=== PATIENT | female | born 1945 | race Caucasian/White ===

== ENCOUNTER 2018-10-14 10:23 | Emergency (ER) | payer OTHER, BC ==
--- OUTSIDE RECORDS SUMMARY | 2018-10-14 10:44 | XMS REPORT | Clinical Summary ---
:1945 Author Organization [facility] Address [address] [place] [address] Care Team Providers Name Role Phone Aelc Primary Care Provider Allergies Active Allergy Reactions Severity Noted Date Comments Codeine 01/23/2017 Medications Medication Sig Dispensed Refills Start Date End Date Status losartan-hydroCHLOROth Take 1 tablet by 0 Active iazide (HYZAAR) 100-25 mouth daily. mg per tablet PANTOPRAZOLE SODIUM Take 40 mg by 0 Active (PANTOPRAZOLE ORAL) mouth daily. pravastatin Take 80 mg by 0 Active (PRAVACHOL) 80 MG mouth daily. tablet GABAPENTIN ORAL Take 600 mg by 0 Active mouth daily. Missing or Take 1 mg by mouth 0 Active Non-Formulary daily Rpenirole Medication HCL- for Restless Leg Syndrome . meclizine (ANTIVERT) Take 12.5 mg by 0 Active 12.5 mg tablet mouth 3 (three) times daily as needed. loratadine (CLARITIN) Take 10 mg by 0 Active 10 mg tablet mouth daily. Active Problems Not on file Social History Tobacco Use Types Packs/Day Years Used Date Former Smoker Alcohol Use Drinks/Week oz/Week Comments Yes 5 Glasses of wine 3.0 Sex Assigned at Date Recorded Not on file Job Start Date Occupation Industry Not on file Not on file Not on file Travel History Travel Start Travel End No recent travel history available. Last Filed Vital Signs Not on file Plan of Treatment Not on file Results Not on fileafter 10/13/2017 Insurance Payer Benefit Plan / Subscriber ID Type Phone Address Group MEDICARE MEDICARE A B xxxxxxxxxx Medicare BLUE CROSS/BLUE BCBS INDEMNITY [place] xxxxxxxxxxxx [facility] [phone] [address] [place] [address]
--- OUTSIDE RECORDS SUMMARY | 2018-10-14 10:44 | XMS REPORT ---
:1945 Author Organization [facility] Address [address] [place] [address] Care Team Providers Name Role Phone ASAEL ROSE CLAUDIO Unavailable Unavailable JOSE M CLINTON Unavailable Unavailable Payers Payer Name Policy Type Policy Number Effective Date Expiration Date Problems This patient has no known problems. Allergies, Adverse Reactions, Alerts Allergy Allergy Status Severity Reaction(s) Onset Inactive Treating Comments Name Type Date Date Clinician codeine DA Active [place] 2018-07 00:00:0 0 adhesive DA Active WI 2018-07 tape 00:00:0 0 adhesive DA Active WI 2018-07 00:00:0 0 codeine DA Active MO 2018-04 00:00:0 0 codeine DA Active MO 2018-03 00:00:0 0 FOAM TAPE DA Active U 2018-02 00:00:0 0 codeine DA Active MO 2018-02 00:00:0 0 Medications This patient has no known medications. Results Test Description Test Time Test Comments Text Results Atomic Results Result Comments - XR PELVIS 1/2 VIEWS 2018-07-29 10:31:00 Patient Name: MAMI BURNETT Unit No: [id number] EXAMS: CPT CODE: [id number] XR PELVIS 1/2 VIEWS 60758 INTRAOPERATIVE LEG LENGTH FILM COMMENT: COMPARISON: No prior exams available. In progress left hip replacement is noted. AP PORTABLE LEFT HIP COMMENT: The patient is status post joint replacement which is articulating normally. at 1031 Reported and signed by: Som Ren MD CC: Wilfrid Davalos MD Technologist: GUERO OWEN RT(R) Transcribed D/ (1031) [facility] NAME: MAMI BURNETT [address] [place] [address] PHYS: Wilfrid Locke : 1945 AGE: 72 SEX: F [place] [address] LOC: Y.311 A PHONE #: [phone] EXAM DATE: 07/28/2018 STATUS: ADM IN FAX #: [phone] RAD #: D/C DT PAGE 1 Signed Report Patient Name: MAMI BURNETT Unit No: [id number] EXAMS: CPT CODE: [id number] XR PELVIS 1/2 VIEWS 75189 <Continued> Orig Print D/T: S: 07/29/2018 (1034[facility] NAME: MAMI BURNETT [address] [place] [address] PHYS: PÉREZ.Christine - Wilfrid Davalos : 1945 AGE: 72 SEX: F [place], [place] [address] LOC: Y.311 A PHONE #: [phone] EXAM DATE: 07/28/2018 STATUS: ADM IN FAX #: [phone] RAD #: D/C DT PAGE 2 Signed Report - XR PELVIS 1/2 VIEWS 2018-07-29 10:31:00 Patient Name: MAMI BURNETT Unit No: [id number] EXAMS: CPT CODE: [id number] XR PELVIS 1/2 VIEWS 33651 INTRAOPERATIVE LEG LENGTH FILM COMMENT: COMPARISON: No prior exams available. In progress left hip replacement is noted. AP PORTABLE LEFT HIP COMMENT: The patient is status post joint replacement which is articulating normally. at 1031 Reported and signed by: Som Ren MD CC: Wilfrid Davalos MD Technologist: KAILA PALMA (RT.R) Transcribed D/ (1031) [facility] NAME: MAMI BURNETT [address] [facility] PHYS: NOHELIA - Bobbi Davalosos Narinder : 1945 AGE: 72 SEX: F [place], [place] [address] LOC: Y.311 A PHONE #: [phone] EXAM DATE: 07/28/2018 STATUS: ADM IN FAX #: [phone] RAD #: D/C DT PAGE 1 Signed Report Patient Name: MAMI BURNETT Unit No: [id number] EXAMS: CPT CODE: [id number] XR PELVIS 1/2 VIEWS 08211 <Continued> Orig Print D/T: S: 07/29/2018 (1034) [facility] NAME: MAMI BURNETT [address] [facility] PHYS: Wilfrid Locke : 1945 AGE: 72 SEX: F [place], [place] [address] LOC: Y.311 A PHONE #: [phone] EXAM DATE: 07/28/2018 STATUS: ADM IN FAX #: [phone] RAD #: D/C DT PAGE 2 Signed Report HGB HCT 2018-07-29 06:03:00 Test Item Value Reference Range Comments HEMOGLOBIN (test code=HGB) 10.2 g/dL 12-16 HEMATOCRIT (test code=HCT) 31.4 % 37-47 TISSUE [id number] 15:30:00Surgical Pathology Report Case: [id number] Authorizing Provider: Asael Rose MD Collected: 01/23/2017 1428 Ordering Location: [facility] Received: 01/23/2017 1530 Pathologist: Ciarra Epstein MD Specimens: A) - Breast, Left, LEFT 4-5 OCLOCK BREAST B) - Breast, Right, RIGHT 9-10 O CLOCK BREAST DUCT A. BREAST, LEFT, 4-5 O'CLOCK, 7 CM FROM NIPPLE, ULTRASOUND GUIDED CORE BIOPSY: - FAT NECROSIS - DENSE STROMAL FIBROSIS- LYMPHOPLASMACYTIC INFILTRATEB. BREAST, RIGHT, 9-10 O'CLOCK, ULTRASOUND GUIDED CORE BIOPSY: - DUCTAL CARCINOMA IN SITU ( DCIS) - NUCLEAR GRADE: 3/3 BY SBR CRITERIA - GROWTH PATTERN: SOLID - CENTRAL NECROSIS SEEN - BIOMARKERS PERFORMED ON SECTION # [id number] - ESTROGEN RECEPTOR: NEGATIVE - PROPORTION SCORE: 0/5 - INTENSITY SCORE : 0/3 - SUMMARY: 0% POSITIVE, NO SIGNAL - PROGESTERONE RECEPTOR: NEGATIVE - PROPORTION SCORE: 0/5 - INTENSITY SCORE: 0/3 - SUMMARY: 0% POSITIVE, NO SIGNAL Part A: Specimen left breast: With alicia-cytokeratin immunostain, no occult epithelial cells are seen. With CD31 immunostain, small vessels and plasma cells are seen throughout the specimen. Factor VIII highlights the smaller caliber vessels. Plasmacells are stained with both [place] and Lambda immunostains. In the sections examined, no malignancy is identified.Part B: Specimen right breast: No invasive carcinoma is seen.A. 97864, 57133, 78924 [id number], 97684 [id number] with invasive carcinoma, questionable angiosarcoma, questionable DCISA. Left 4-5 o'clock breast mass 7 cm from nippleB. Right 9-10 o'clock breast DCISSpecimen is received in two containers of formalin both labeled with the patient's information.Specimen A: Labeled "left 4-5 o'clock breast mass 7 cm from nipple" consists of two schultz-yellow breast core biopsies measuring 1.6 x 1.8 cm in length.Ink code: Black.The specimen is entirely submitted entirely in A1.Specimen A: Labeled "right 9-10 o'clock breast DCIS" consists of multiple yellow-white breast core biopsies ranging in length from 1 to 1.5 cm.Ink code: Blue.The specimen is entirely submitted entirely in B1 and B2. CG/ew A. - B. Performed.The following special studies were performed on this case and the interpretationis incorporated in the diagnostic report above:A:ALICIA-CYTOKERATIN ( AE1/AE3)[id number]:ERPRCAP REGULATION: FIXATION TIME FOR BIOMARKERS ASSESSMENTCollection date and time: 01/23/2017 1428Placed in fixative date and time: 01/23/2017 1428Removed from formalin date and time: 0400Methodology: Fixation type and length: tissue was fixed in 10% neutral buffered formalin for a minimal of at least 6 hours and not longer than 72 hours. Antibody and Assay Methodology: Antibodies for ER, PgR, Her2 and Ki67 were assessed using clones SP1, [id number], 4B5 (FDA Approved [employer]) and [id number] respectively from [employer] [place], [place].Control Slides Examined: In- house known ER, VA, HER2 andKi67 positive controls were evaluated along with test tissue. These control slides run along side of the patients sample show appropriate staining.Interpretive Criteria: The staining results according to the ASCO/CAP guidelines for HER2 (Sage SHAW et al. Arch Pathol Lab Med 2012Apr 12 and ER/VA (Ann NICOLAS et al. Arch Pathol Lab Med 2010; 134:e48-e72) by ASCO/ CAP guidelines, ER and VA "positive" requires greater or equal to 1% tumor cells showing nuclear staining. HER 2 fausto "positive" (3+) requires circumferential membrane staining that is complete and intense within more than 10% of the invasive tumor cells. The ER/VA Proportion Score indicates the proportion of positive staining tumor cells (0=none; 1 < 1/100; 2=1/100-1/10 ; 3=1/10-1/3; 4=1/3-2/3; 5> 2/3). The intensity score indicates the average intensity of positive staining tumor cells (0=none; 1=weak; 2=intermediate; 3= strong).For the purpose of defining "positive", the proportion and intensity scores were added to obtain a total score (range 0-8). ER and PgR "positive" ( total score >2) were defined in studies correlating IHC total scores with clinical outcome in patients receiving hormonal therapy (see: Modern Pathol 11: 155, 1998; J Clin Oncol 17:1474, 1999; Int J Cancer 89:111, 2000; Breast Cancer Res Treat 76:S36[abst#30], 2002). The immunohistochemistry test was developed and its performance characteristics determined by [facility] Pathology [facility]. It has not been cleared or approvedby the U.S. Food and Drug Administration. The FDA has determined that such clearance or approval is not necessary. The test is used for clinical purposes. It should not be regarded as investigational or for research. This laboratory is certified under the Clinical Laboratory Improvement Amendments of 1988 (CLIA-88 ) as qualified to perform high complexity clinical laboratory testing.POCT- [id number] 08:13:00 Test Item Value Reference Range Comments POC-CREATININE ([facility]) 0.6 mg/dL 0.6-1.3 TESTED AT [facility] [address] (test qftj=9243) [facility] [address] POC-EGFR ([facility]) (test 99 mL/min/1.73M2 zbzp=1363)
--- NOTE | 2018-10-14 12:18 | RAD REPORT ---
EXAM DESCRIPTION: RAD - Chest Pa And Lat (2 Views) - 10/14/2018 12:04 pm CLINICAL HISTORY: Fever, sore throat, cough and congestion COMPARISON: January 2017 TECHNIQUE: PA and lateral views of the chest were obtained. FINDINGS: The lungs are normal volume. No peripheral consolidation mass. Interstitial markings are p rominent but not substantially different from comparison. This is favored to be underlying fibrotic c hange. Heart size is normal and central vasculature is within normal limits. No pleural effusion or pneu mothorax seen. No acute bony finding noted. No aortic abnormality. IMPRESSION: No focal pneumonia seen and no failure or volume overload. Chronic interstitial lung disease is present not substantially different from comparison.
--- NOTE | 2018-10-14 13:06 | EDPHYS ---
Physician Documentation [facility] Name: Gi Sparks Age: 73 yrs Sex: Female : 1945 Arrival Date: 10/14/2018 Time: 10:27 Bed 8 Private MD: Jonatan Rangel ED Physician Lester Walton HPI: 10/14 12:00 This 73 yrs old Female presents to ER via Ambulatory with complaints of Fever.pm1 23:20 The patient or guardian reports cough, with no sputum. Onset: The symptoms/episode pm1 began/occurred 3 day(s) ago. Severity of symptoms: in the emergency department the symptoms are unchanged. Modifying factors: The symptoms are alleviated by OTC cold preparation, Tylenol, the symptoms are aggravated by nothing. Associated signs and symptoms: Pertinent positives: diarrhea, fever, rhinorrhea, sore throat, body aches. The patient has not experienced similar symptoms in the past. The patient has not recently seen a physician. Historical: - Allergies: 10:38 Codeine; doesnt like the way it makes her feel; tw2 - Home Meds: 10:38 ropinirole 1 mg Oral tab [Active]; pravastatin 80 mg Oral tab [Active]; pantoprazole 40 tw2 mg Oral TbEC [Active]; losartan 25 mg Oral tab [Active]; gabapentin 600 mg Oral tab [Active]; amlodipine 5 mg tab 1 tab once daily [Active]; loratadine 10 mg oral tab 1 tab once daily [Active]; - PMHx: 10:38 GERD; Hyperlipidemia; Hypertension; neuropathy; restless leg; tw2 - PSHx: 10:38 Hysterectomy; Tonsillectomy; breast cancer; tw2 - Immunization history:: Adult Immunizations. - Social history:: Smoking status: . - Ebola Screening: : Patient denies exposure to infectious person. ROS: 23:20 Eyes: Negative for injury, pain, redness, and discharge, ENT: Negative for injury, pm1 pain, and discharge, Neck: Negative for injury, pain, and swelling, Cardiovascular: Negative for chest pain, palpitations, and edema. 23:20 Abdomen/GI: Negative for abdominal pain, nausea, vomiting, diarrhea, and constipation, Back: Negative for injury and pain, : Negative for injury, bleeding, discharge, and swelling, MS/Extremity: Negative for injury and deformity, Skin: Negative for injury, rash, and discoloration, Neuro: Negative for headache, weakness, numbness, tingling, and seizure. 23:20 Constitutional: Positive for body aches, fever, Negative for poor PO intake. 23:20 Respiratory: Positive for cough, with no reported sputum, shortness of breath. Exam: 23:20 Constitutional: This is a well developed, well nourished patient who is awake, alert, pm1 and in no acute distress. Head/Face: Normocephalic, atraumatic. Eyes: Pupils equal round and reactive to light, extra-ocular motions intact. Lids and lashes normal. Conjunctiva and sclera are non-icteric and not injected. Cornea within normal limits. Periorbital areas with no swelling, redness, or edema. ENT: Nares patent. No nasal discharge, no septal abnormalities noted. Tympanic membranes are normal and external auditory canals are clear. Oropharynx with no redness, swelling, or masses, exudates, or evidence of obstruction, uvula midline. Mucous membranes moist. Neck: Trachea midline, no thyromegaly or masses palpated, and no cervical lymphadenopathy. Supple, full range of motion without nuchal rigidity, or vertebral point tenderness. No Meningismus. Chest/axilla: Normal chest wall appearance and motion. Nontender with no deformity. No lesions are appreciated. Cardiovascular: Regular rate and rhythm with a normal S1 and S2. No gallops, murmurs, or rubs. Normal PMI, no JVD. No pulse deficits. Respiratory: Lungs have equal breath sounds bilaterally, clear to auscultation and percussion. No rales, rhonchi or wheezes noted. No increased work of breathing, no retractions or nasal flaring. Abdomen/GI: Soft, non-tender, with normal bowel sounds. No distension or tympany. No guarding or rebound. No evidence of tenderness throughout. Back: No spinal tenderness. No costovertebral tenderness. Full range of motion. Skin: Warm, dry with normal turgor. Normal color with no rashes, no lesions, and no evidence of cellulitis. MS/ Extremity: Pulses equal, no cyanosis. Neurovascular intact. Full, normal range of motion. 23:20 Neuro: Orientation: is normal, Motor: moves all fours, Gait: is steady, at a normal pace, without difficulty. Vital Signs: 10:35 BP 173 / 88; Pulse 85; Resp 18; Temp 99.0(O); Pulse Ox 95% on R/A; Weight 104.33 kg tw2 (R); Pain 7/10; 11:52 BP 136 / 60; Pulse 83; Resp 14; Pulse Ox 94% ; bp 13:50 BP 115 / 40; Pulse 77; Resp 16; Pulse Ox 97% ; bp MDM: 11:04 Patient medically screened. pm1 13:05 Data reviewed: vital signs. Data interpreted: Pulse oximetry: on room air is 95 %. pm1 Interpretation: normal. Counseling: I had a detailed discussion with the patient and/or guardian regarding: the historical points, exam findings, and any diagnostic results supporting the discharge/admit diagnosis, lab results, radiology results, the need for outpatient follow up, to return to the emergency department if symptoms worsen or persist or if there are any questions or concerns that arise at home. 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 Patient did get the flu shot this year. Patient's symptoms greater than 48 hours, therefore not a candidate for tamiflu. 10/14 10:58 Order name: Flu; Complete Time: 12:20 pm1 10/14 10:58 Order name: Strep; Complete Time: 12:20 pm1 10/14 10:58 Order name: Chest Pa And Lat (2 Views) XRAY; Complete Time: 12:20 pm1 10/14 12:03 Order name: Throat Culture EDMS Administered Medications: No medications were administered Disposition: 16:28 Co-signature as Attending Physician, Lester Walton MD I agree with the assessment and kdr plan of care. Disposition: 10/14/18 13:06 Discharged to Home. Impression: Influenza due to identified novel influenza A virus. - Condition is Stable. - Discharge Instructions: Influenza, Adult. - Medication Reconciliation Form, Thank You Letter, Antibiotic Education, Prescription Opioid Use form. - Follow up: Emergency Department; When: As needed; Reason: Worsening of condition. Follow up: Private Physician; When: 2 - 3 days; Reason: Recheck today's complaints, Continuance of care, Re-evaluation by your physician. - Problem is new. - Symptoms have improved. Signatures: Dispatcher [employer] EDMS Lester Walton MD MD kdr Marinas, Patrick, YARITZA [employer]IV[employer] WORK[employer]ISTED LIVING pm1 Aster Mensah, RN RN tw2 Marcell Tirado, RN RN bp Corrections: (The following items were deleted from the chart) 13:51 13:06 10/14/2018 13:06 Discharged to Home. Impression: Influenza due to identified bp novel influenza A virus. Condition is Stable. Forms are Medication Reconciliation Form, Thank You Letter, Antibiotic Education, Prescription Opioid Use. Follow up: Emergency Department; When: As needed; Reason: Worsening of condition. Follow up: Private Physician; When: 2 - 3 days; Reason: Recheck today's complaints, Continuance of care, Re-evaluation by your physician. Problem is new. Symptoms have improved. pm1
--- NOTE | 2018-10-14 13:06 | ER ---
Nurse's Notes [facility] Name: Gi Sparks Age: 73 yrs Sex: Female : 1945 Arrival Date: 10/14/2018 Time: 10:27 Bed 8 Private MD: oJnatan Rangel Diagnosis: Influenza due to identified novel influenza A virus Presentation: 10/14 10:34 Presenting complaint: Patient states: i just started running fever Friday it has been tw2 102. i feel like a little sore throat, i feel congested, my teeth hurt and i have diarrhea, i feel short of breath. Transition of care: patient was not received from another setting of care. Onset of symptoms was October 14, 2018. Risk Assessment: Do you want to hurt yourself or someone else? Patient reports no desire to harm self or others. Initial Sepsis Screen: Does the patient meet any 2 criteria? No. Patient's initial sepsis screen is negative. Does the patient have a suspected source of infection? No. Patient's initial sepsis screen is negative. Care prior to arrival: None. 10:34 Method Of Arrival: Ambulatory tw2 10:34 Acuity: GUEVARA 3 tw2 Triage Assessment: 10:36 General: Appears uncomfortable, obese, Behavior is calm, cooperative, appropriate for tw2 age. Pain: Complains of pain in throat. Neuro: Reports headache. Respiratory: Reports shortness of breath. Historical: - Allergies: 10:38 Codeine; doesnt like the way it makes her feel; tw2 - Home Meds: 10:38 ropinirole 1 mg Oral tab [Active]; pravastatin 80 mg Oral tab [Active]; pantoprazole 40 tw2 mg Oral TbEC [Active]; losartan 25 mg Oral tab [Active]; gabapentin 600 mg Oral tab [Active]; amlodipine 5 mg tab 1 tab once daily [Active]; loratadine 10 mg oral tab 1 tab once daily [Active]; - PMHx: 10:38 GERD; Hyperlipidemia; Hypertension; neuropathy; restless leg; tw2 - PSHx: 10:38 Hysterectomy; Tonsillectomy; breast cancer; tw2 - Immunization history:: Adult Immunizations. - Social history:: Smoking status: . - Ebola Screening: : Patient denies exposure to infectious person. Screenin:45 Abuse screen: Denies threats or abuse. Denies injuries from another. Nutritional bp screening: No deficits noted. Tuberculosis screening: No symptoms or risk factors identified. Fall Risk None identified. Assessment: 10:45 General: Appears in no apparent distress. uncomfortable, obese, Behavior is bp cooperative, appropriate for age, anxious. Pain: Denies pain. Neuro: Level of Consciousness is awake, alert, obeys commands, Oriented to person, place, time, situation, Appropriate for age. Cardiovascular: No deficits noted. Respiratory: Airway is patent Respiratory effort is even, unlabored, Respiratory pattern is regular, symmetrical. GI: No signs and/or symptoms were reported involving the gastrointestinal system. : No signs and/or symptoms were reported regarding the genitourinary system. EENT: No deficits noted. Derm: No deficits noted. Musculoskeletal: Circulation, motion, and sensation intact. Range of motion: intact in all extremities. 11:45 Reassessment: ALL CURRENT ORDERS COMPLETED, RESULTS PENDING. bp 13:51 Reassessment: PT D/C HOME AMBULATORY, DX WITH INFLUENZA. bp Vital Signs: 10:35 BP 173 / 88; Pulse 85; Resp 18; Temp 99.0(O); Pulse Ox 95% on R/A; Weight 104.33 kg tw2 (R); Pain 7/10; 11:52 BP 136 / 60; Pulse 83; Resp 14; Pulse Ox 94% ; bp 13:50 BP 115 / 40; Pulse 77; Resp 16; Pulse Ox 97% ; bp ED Course: 10:27 Patient arrived in ED. mr 10:28 Jonatan Rangel MD is Private Physician. mr 10:35 Triage completed. tw2 10:36 Arm band placed on. tw2 10:44 Farhad Paez NP is PHCP. pm1 10:44 Lester Walton MD is Attending Physician. pm1 10:45 Patient has correct armband on for positive identification. Bed in low position. Call bp light in reach. Side rails up X2. 10:48 Marcell Tirado, GONZALEZ is Primary Nurse. bp 12:01 Patient moved to radiology via wheelchair. ls3 12:03 Patient moved back from radiology. ml 12:03 Chest Pa And Lat (2 Views) XRAY In Process Unspecified. EDMS 13:30 No provider procedures requiring assistance completed. Patient did not have IV access bp during this emergency room visit. Administered Medications: No medications were administered Outcome: 13:06 Discharge ordered by . pm1 13:30 Discharged to home ambulatory. bp 13:30 Condition: stable 13:30 Discharge instructions given to patient, Instructed on discharge instructions, follow up and referral plans. 13:51 Patient left the ED. bp Signatures: Dispatcher [employer] EDMS LouisEstelita mr Alberto, AdinaFarhad Brownlee, YARITZA SENIOR QUALITY ASSURANCE ENGINEER pm1 Aster Mensah RN RN tw2 Marcell Tirado, GONZALEZ RN bp Michael Cesar ls3
== END 2018-10-14 13:51 | disposition home or self-care (01) ==
LOC: ER 10:23
DX: J10.1 Influenza due to other identified influenza virus with other respiratory manifestations (principal); K21.9 Gastro-esophageal reflux disease without esophagitis; E78.5 Hyperlipidemia, unspecified; I10 Essential (primary) hypertension; Z88.5 Allergy status to narcotic agent
CPT/HCPCS: 71046; 87070; 87081; 87804; 99283

== ENCOUNTER 2019-07-06 06:35 | Day surgery (SDC) | payer OTHER, BC ==
[2019-07-05 14:17] LABS: Absolute Lymphocytes (CBC) 1.3 K/uL (0.7-4.9); Hematocrit 37.6 % (36.0-45.0); Lymphocytes % 24.5 % (15.3-44.8); MPV 11.1 fL (7.6-11.3); RBC Red Blood Cell Count 4.11 M/uL (3.86-4.86)
--- NOTE | 2019-07-05 14:23 | RAD REPORT ---
EXAM DESCRIPTION: RAD - Chest Pa And Lat (2 Views) - 07/05/2019 2:08 pm CLINICAL HISTORY: preop, pending cardiac catheterization, history of tachycardia and shortness of br eath COMPARISON: October 14 TECHNIQUE: PA and lateral views of the chest were obtained. FINDINGS: The lungs are clear of mass or infiltrate. Interstitial pattern matches comparison. Hilar regions match comparison as well. Heart size is normal and central vasculature is within normal ely its. No pleural effusion or pneumothorax seen. No acute bone findings. Degenerative change and acce ntuated kyphosis are stable. No aortic abnormality. IMPRESSION: No acute cardiopulmonary process. No significant change from comparison.
[2019-07-05 14:25] LABS: Potassium 4.5 mmol/L (3.5-5.1)
[2019-07-05 14:26] LABS: Protime INR 0.95
--- NOTE | 2019-07-05 15:35 | EKG ---
Test Date: 2019-07-05 Test Time: 13:45:41 Spool Fixer: NEREYDA MEASUREMENT RESULTS: Intervals: Rate: 48 PA: 204 QRSD: 94 QT: 482 QTc: 430 Colon: P: 52 PA: 204 QRS: -25 T: 16 INTERPRETIVE STATEMENTS: Marked sinus bradycardia Septal infarct, age undetermined Abnormal ECG Compared to ECG 01/25/2017 10:37:08 Sinus rhythm no longer present Left-axis deviation no longer present Myocardial infarct finding still present Electronically Signed On 07-05-19 15:34:24 TRAFFIC SIGNAL SUPERVISOR MAINTENANCE by Donavan Joy
--- OUTSIDE RECORDS SUMMARY | 2019-07-06 06:37 | XMS REPORT ---
:1945 [facility] Address [address] [place] [address] Care Team Providers Name Role Phone ASAEL ROSE CLAUDIO Unavailable Unavailable JOSE M CLINTON Unavailable Unavailable Payers Payer Name Policy Type Policy Number Effective Date Expiration Date Problems This patient has no known problems. Allergies, Adverse Reactions, Alerts Allergy Allergy Status Severity Reaction(s) Onset Inactive Treating Comments Name Type Date Date Clinician codeine DA Active [place] 2018-07 00:00:0 0 adhesive DA Active [place] 2018-07 tape 00:00:0 0 adhesive DA Active [place] 2018-07 00:00:0 0 codeine DA Active [place] [...] 10:31:00 Patient Name: MAMI BURNETT Unit No: [id number] EXAMS: CPT CODE: [id number] XR PELVIS 1/2 VIEWS 55230 INTRAOPERATIVE LEG LENGTH FILM COMMENT: COMPARISON: No prior exams available. In progress left hip replacement is noted. AP PORTABLE LEFT HIP COMMENT: The patient is status post joint replacement which is articulating normally. at 1031 Reported and signed by: Som Ren MD CC: Wilfrid Davalos MD Technologist: GUERO OWEN RT(R) Transcribed D/ (1031) Bess [facility] NAME: MAMI BURNETT [address] [place] [address] PHYS: Wilfrid Locke : 1945 AGE: 72 SEX: F [place] [address] LOC: Y.311 A PHONE #: [phone] EXAM DATE: 07/28/2018 STATUS: ADM IN FAX #: [phone] RAD #: D/C DT PAGE 1 Signed Report Patient Name: MAMI BURNETT Unit No: [id number] EXAMS: CPT CODE: [id number] XR PELVIS 1/2 VIEWS 56133 <Continued> Orig Print D/T: S: 07/29/2018 (1034) [facility] NAME: MAMI BURNETT [address] [place] [address] PHYS: PÉREZ.Christine - Wilfrid Davalos : 1945 AGE: 72 SEX: F [place] [address] LOC: Y.311 A PHONE #: [phone] EXAM DATE: 07/28/2018 STATUS: ADM IN FAX #: [phone] RAD #: D/C DT PAGE 2 Signed Report - XR PELVIS 1/2 VIEWS 2018-07-29 10:31:00 Patient Name: MAMI BURNETT Unit No: [id number] EXAMS: CPT CODE: [id number] XR PELVIS 1/2 VIEWS 85946 INTRAOPERATIVE LEG LENGTH FILM COMMENT: COMPARISON: No prior exams available. In progress left hip replacement is noted. AP PORTABLE LEFT HIP COMMENT: The patient is status post joint replacement which is articulating normally. at 1031 Reported and signed by: Som Ren MD CC: Wilfrid Davalos MD Technologist: KAILA PALMA (RT.R) Transcribed D/ (1031Tolu Kellogg [facility] NAME: MAMI BURNETT [address] [facility] PHYS: Bobbi Lockeos Narinder : 1945 AGE: 72 SEX: F [place], [place] [address] LOC: Y.311 A PHONE #: [phone] EXAM DATE: 07/28/2018 STATUS: ADM IN FAX #: [phone] RAD #: D/C DT PAGE 1 Signed Report Patient Name: MAMI BURNETT Unit No: [id number] EXAMS: CPT CODE: [id number] XR PELVIS 1/2 VIEWS 94337 <Continued> Orig Print D/T: S: 07/29/2018 (1034) [facility] NAME: MAMI BURNETT [address] [facility] PHYS: Wilfrid Locke : 1945 AGE: 72 SEX: F [place], [place] [address] LOC: Y.311 A PHONE #: [phone] EXAM DATE: 07/28/2018 STATUS: ADM IN FAX #: [phone] RAD #: D/C DT PAGE 2 Signed Report HGB HCT 2018-07-29 06:03:00 Test Item Value Reference Range Comments HEMOGLOBIN (test code=HGB) 10.2 g/dL 12-16 HEMATOCRIT (test code=HCT) 31.4 % 37-47 TISSUE [id number] 15:30:00Surgical Pathology Report Case: [id number] Authorizing Provider: Asael Rose MD Collected: 01/23/2017 1428 Ordering Location: [facility] Received: 01/23/2017 1537 Pathologist: Ciarra Epstein MD Specimens: A) - [...] caliber vessels. Plasmacells are stained with both [place] and Lambda immunostains. In the sections examined, no malignancy is identified.Part B: Specimen right breast: No invasive carcinoma is seen.A. 92389, 37312, 02099 [id number], 16208 [id number] with invasive carcinoma, questionable angiosarcoma, questionable DCISA. [...] incorporated in the diagnostic report above:A:ALICIA-CYTOKERATIN ( AE1/AE3)[id number]:ERPRCAP REGULATION: FIXATION TIME FOR BIOMARKERS ASSESSMENTCollection [...] using clones SP1, [id number], 4B5 (FDA Approved [place] [facility]) and 30-9 respectively from [place], [place].Control Slides Examined: In- house known ER, TN, HER2 andKi67 positive controls were evaluated along with test tissue. These control slides run along side of the patients sample show appropriate staining.Interpretive Criteria: The staining results according to the ASCO/CAP guidelines for HER2 (Sage SHAW et al. Arch Pathol Lab Med 2012Apr 12 and ER/TN (Ann NICOLAS et al. Arch Pathol Lab Med 2010; 134:e48-e72) by ASCO/ CAP guidelines, ER and TN "positive" requires greater or equal to 1% tumor cells showing nuclear staining. HER 2 fausto "positive" (3+) requires circumferential membrane staining that is complete and intense within more than 10% of the invasive tumor cells. The ER/TN Proportion Score indicates the proportion of positive [...] developed and its performance characteristics determined by [facility], Pathology Laboratory. It has not [...] to perform high complexity clinical laboratory testing.POCT- [id number] 08:13:00 Test Item Value Reference Range Comments POC-CREATININE ([facility]) 0.6 mg/dL 0.6-1.3 TESTED AT [facility] [address] [facility] (test lcza=2086) [facility] [address] POC-EGFR ([facility]) (test 99 mL/min/1.73M2 dagv=7968)
[2019-07-06] MEDS ORDERED: HEPA 1000U/500MLS 1,000 UNIT/500 ML BAG IV ONE (06:41)
[2019-07-06] MEDS ORDERED: LIDOCAINE 1% MPF 30 ML VIAL ONE (06:42)
[2019-07-06] MEDS ORDERED: FENTANYL CITR 100 MCG/2 ML ONE (06:42)
[2019-07-06] MEDS ORDERED: MIDAZOLAM HCL 2 MG/2 ML INJ ONE ×2 (06:42→07:39)
[2019-07-06] MEDS ORDERED: ATROPINE SULF 1 MG/10 ML SYR IV ONE (06:42)
[2019-07-06] MEDS ORDERED: NA CHLORIDE 0.9% 0 ML ONE (06:42)
[2019-07-06] MEDS ORDERED: NA CHLORIDE 0.9% 500 ML ONE (06:47)
[2019-07-06 08:24] VITALS: TEMP 97
[2019-07-06 11:15] VITALS: BP 133/68; O2SAT 97
--- NOTE | 2019-07-06 19:12 | OP ---
Date of Procedure: 07/06/2019 Surgeon: Jason Pires MD Industrial Relations Analyst: Pam King. Procedures: Left heart catheterization, selective coronary arteriogram. Indication: Positive stress test and dyspnea on exertion. Ms. Sparks is 73, has had dyspnea on exertion. She has morbid obesity, mild pulmonary hypertension. She was seen by extractor machine operator who does not think her symptoms were secondary to COPD. Continued to have symptoms of dyspnea on exertion. 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 Description Of Procedure: She was brought in as an outpatient, prepped and draped in the routine kg rile fashion. Given first Versed for sedation. A 6-Tunisian sheath introduced in the right common fem oral artery successfully. Angiography there was normal. Angio-Seal was used to close the case. 6-F rench catheters, left and right Leonel were used to select the left main and the right main respecti vely. She had a nondominant small RCA, which was normal. Her circumflex was very large with minor p laquing. Her left main was normal. LAD showed some minor plaquing. She was very left dominant. No focal stenosis. Complications: None. Blood Loss: 5 mL. Anesthesia: Total conscious sedation was 30 minutes. Final Diagnosis: Mild coronary artery disease. Plan: For medical therapy. Disposition: Patient will go home today on home medicine. I will see her in the office in 2 weeks. Results were discussed with her and her family. INGRIS/HAILE Voice ID: [id number] Report ID: [id number]
== END 2019-07-06 10:15 | disposition home health service (06) ==
LOC: CCL 06:35
PROC: B201YZZ Plain Radiography of Multiple Coronary Arteries using Other Contrast (ICD-10-PCS; principal; 2019-07-06)
DX: I25.10 Atherosclerotic heart disease of native coronary artery without angina pectoris (principal); R94.39 Abnormal result of other cardiovascular function study; I10 Essential (primary) hypertension; E78.5 Hyperlipidemia, unspecified; K21.9 Gastro-esophageal reflux disease without esophagitis; G47.30 Sleep apnea, unspecified; E66.01 Morbid (severe) obesity due to excess calories; I27.20 Pulmonary hypertension, unspecified; Z68.42 Body mass index [BMI] 45.0-49.9, adult; Z88.6 Allergy status to analgesic agent; G62.9 Polyneuropathy, unspecified; E66.9 Obesity, unspecified
CPT/HCPCS: 93005; 85025; 80048; 36415; 85610; 85730; 71046; 93454; C1893; C1760; J2250 ×2; J3010; J7040; J0583

== ENCOUNTER 2021-02-23 08:23 | Emergency (ER) | payer OTHER, BC ==
--- OUTSIDE RECORDS SUMMARY | 2021-02-23 08:25 | XMS REPORT | Continuity of Care Document ---
:1945 Author Organization [facility] Address [address] [place] [address] Care Team Providers Name Role Phone Sharpless Primary Care Physician CLAUDIO UMANZOR Attending Clinician Unavailable SUSANNA CLINTON Attending Clinician Unavailable Payers Payer Name Policy Type Policy Number Effective Date Expiration Date S ource Problems This patient has no known problems. Allergies, Adverse Reactions, Alerts Allergy Allergy Status Severity Reaction(s) Onset Inactive Treating Comm ents Source Name Type Date Date Clinician codeine DA Active [place] [facility] [place] [facility] DA Active [place] [facility] tape 07-28 [facility] adhesive DA Active [place] [facility] 07-15 [facility] [place] codeine DA Active [place] 2017-07 [facility] 0-02 [facility] [place] codeine DA Active [place] 2017- [facility] 03-31 [place] 00:[facility]: [facility]ope [facility] codeine DA Active [place] [facility] [place] 00:[facility]ope 00 dic [facility] FOAM DA Active [facility] TAPE 8- [facility] [place] Codeine Propensi Active [facility] ty to 7-20 [facility] - adverse 00:00: Medical reaction 00 Center s Social History Social Habit Start Date Stop Date Quantity Comments Source Sex Assigned At [facility] Alcohol intake 2017-01-23 2017-01-23 Current drinker [facility] Graham bateman [facility] - 00:00:00 00:00:00 of alcohol [facility] Center (finding) Smoking Status Start Date Stop Date Source Former smoker 2017-01-23 00:00:00 2017-01-23 00:00:00 [facility] Ordered Filled Start Stop Current Ordering Indication Dosage Frequency Signature Comments Components Source Medication Medication Date Date Medication? Clinician (SIG) Name Name meclizine Yes 12.5mg Take 12.[address] (ANTIVERT) 7-20 mg by [facility] - 12.5 mg 08:10: mouth 3 Medical tablet 55 (three) Center times daily as needed. loratadine Yes 10mg QD Take [address] (CLARITIN) 7-20 by mouth [facility] - 10 mg 08:10: daily. Medical tablet 55 Center Missing or Yes 1mg QD Take [address] Non-Formula 7-20 by mouth [facility] - ry 08:10: daily Medical Medication 54 [facility] er HCL- for Restless Leg Syndrome . losartan-hy Yes 1{tbl} QD Take [address] droCHLOROth 7-20 tablet by [place] [facility] - iazide 08:10: mouth Medical (HYZAAR) 54 daily. [place] 100-25 mg per tablet PANTOPRAZOL Yes 40mg QD Take [address] E SODIUM 7-20 by mouth [facility] - (PANTOPRAZO 08:10: daily. Medi jim LE ORAL) 54 [place] pravastatin Yes 80mg QD Take [address] (PRAVACHOL) 7-20 by mouth [facility] - 80 MG 08:10: daily. Medical tablet 54 [place] GABAPENTIN Yes 600mg QD Take [address] ORAL 7-20 mg by [facility] - 08:10: mouth Medical 54 daily. Center Procedures This patient has no known procedures. Results Test Description Test Time Test Comments Results Result [facility] sugey Comments - XR PELVIS 07/082018-07-29 Patient Name: VIEWS 10:31:00 MAMI BURNETT Unit No: [id number] EXAMS: CPT CODE: [id number] XR PELVIS 07/08 VIEWS 72872 INTRAOPERATIVE LEG LENGTH FILM COMMENT: COMPARISON: No prior exams available. In progress left hip replacement is noted. AP PORTABLE LEFT HIP COMMENT: The patient is status post joint replacement which is articulating normally. at 1031 Reported and signed by: Som Ren MD CC: Wilfrid Davalos MD Technologist: GUERO OWEN RT(R) Transcribed D/ (1031) t.JUAN CARLOS.LAURAL [facility] NAME: MAMI BURNETT [address] [place] [address] PHYS: MATKAITLYNN.Christine - Bobbi Davalosos Narinder : 1945 AGE: 72 SEX: F [place] [address] LOC: Y.311 A PHONE #: [phone] EXAM DATE: 07/28/2018 STATUS: ADM IN FAX #: [phone] RAD #: D/C DT PAGE 1 Signed Report Patient Name: MAMI BURNETT Unit No: [id number] EXAMS: CPT CODE: [id number] XR PELVIS 1/2 VIEWS 32818 <Continued> Orig Print D/T: S: 07/29/2018 (1036) [facility] NAME: MAMI BURNETT [address] [place] [address] PHYS: PÉREZ.Wilfrid Geiger : 1945 AGE: 72 SEX: F [place] [address] LOC: Y.311 A PHONE #: [phone] EXAM DATE: 07/28/2018 STATUS: ADM IN FAX #: [phone] RAD #: D/C DT PAGE 2 Signed Report - XR PELVIS /2018-07-29 Patient Name: VIEWS 10:31:00 MAMI BURNETT Unit No: [id number] EXAMS: CPT CODE: [id number] XR PELVIS 1/2 VIEWS 76638 INTRAOPERATIVE LEG LENGTH FILM COMMENT: COMPARISON: No prior exams available. In progress left hip replacement is noted. AP PORTABLE LEFT HIP COMMENT: The patient is status post joint replacement which is articulating normally. at 1031 Reported and signed by: Som Ren MD CC: Wilfrid Davalos MD Technologist: KAILA PALMA (RT.R) Transcribed D/ (1031) [facility] NAME: MAMI BURNETT [address] [facility] PHYS: NOHELIA Fuentes Wilfrid Davalos Narinder : 1945 AGE: 72 SEX: F [place], [place] [address] LOC: Y.311 A PHONE #: [phone] EXAM DATE: 07/28/2018 STATUS: ADM IN FAX #: [phone] RAD #: D/C DT PAGE 1 Signed Report Patient Name: MAMI BURNETT Unit No: [id number] EXAMS: CPT CODE: [id number] XR PELVIS 1/2 VIEWS 94804 <Continued> Orig Print D/T: S: 07/29/2018 (6679) [facility] NAME: MAMI BURNETT [address] [place] [address] PHYS: NOHELIA Fuentes AnoopWilfrid Narinder : 1945 AGE: 72 SEX: F [place] [address] LOC: Y.311 A PHONE #: [phone] EXAM DATE: 07/28/2018 STATUS: ADM IN FAX #: [phone] RAD #: D/C DT PAGE 2 Signed Report HGB HCT 2018-07-29 06:03:00 Test Item Value Reference Range Interpretation Comme nts HEMOGLOBIN (test code = HGB) 10.2 g/dL 12-16 L HEMATOCRIT (test code = HCT) 31.4 % 37-47 L TISSUE [id number] 15:30:00Surgical Pathology Report Case: [id number] Authorizing Provider: Noel Umanzor MD Collected: 01/23/2017 1428 Ordering Location: [facility] Received: 01/23/2017 3115 Pathologist: Ciarra Epstein MD Specimens: A) - Breast, Left, LEFT 4-5 OCLOCK BREAST B) - Breast, Right, RIGHT 9-10 O CLOCK BREAST DUCT A. BREAST, LEFT, 4-5 O'CLOCK, 7 CM FROM NIPPLE, ULTRASOUND GUIDED CORE BIOPSY: - FAT NECROSIS - DENSE STROMAL FIBROSIS- LYMPHOPLASMACYTIC INFILTRATEB. 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 Plasmacells are stained with both [place] and Lambda immunostains. In the sections examined, no malignancy is identified.Part B: Specimen right breast: No invasive carcinoma is seen.A. 58747, 82907, 81770 [id number], 76017 [id number] with invasive carcinoma, questionable angiosarcoma, questionable DCISA. Left 4-5 o'clock breast mass 7 cm from nippleB. Right 9-10 o'clock breast DCISSpecimen is received in two containers of formalin both labeled with the patient's information.Specimen A: Labeled "left 4-5 o'clock breast mass 7 cm from nipple" consists of two schultz- yellow breast core biopsies measuring 1.6 x 1.8 [...] interpretationis incorporated in the diagnostic report above:A:ALICIA-CYTOKERATIN (AE1/AE3)[id number] :ERPRCAP REGULATION: FIXATION TIME FOR BIOMARKERS ASSESSMENTCollection date and time: 01/23/2017 1428Placed in fixative date and time: 01/23/2017 1428Removed from formalin date and time: 01/24/2017 0400Methodology: Fixation type and length: tissue was fixed in 10% neutral buffered formalin for a minimal of at least 6 hours and not longer than 72 hours. Antibody and Assay Methodology: Antibodies for ER, PgR, Her2 and Ki67 were assessed using clones SP1, 1294, 4B5 (FDA Approved [place] [facility]) and 30-9 respectively from [place], [place].Control Slides Examined: In-house known ER, [place], HER2 andKi67 positive controls were evaluated along with test tissue. These control slides run along side of the patients sample show appropriate staining.Interpretive Criteria: The staining results according to the ASCO/CAP guidelines for HER2 (Sage SHAW et al. Arch Pathol Lab Med 2012Apr 12 and ER/NH (Ann NICOLAS et al. Arch Pathol Lab Med 2010; 134:e48-e72) by ASCO/CAP guidelines, ER and NH "positive" requires greater or equal to 1% tumor cells showing nuclear staining. HER 2 fausto "positive" (3+) requires circumferential membrane staining that is complete and intense within more than 10% of the invasive tumor cells. The ER/NH Proportion Score indicates the proportion of positive staining tumor cells (0 = none; 1 < 1/100; 2 = 1/100-1/10; 3 = 1/10-1/3; 4 = 1/3-2/3; 5> 2/3). The intensity score indicates the average intensity of positive staining tumor cells (0 = none; 1 = weak; 2 = intermediate; 3 = strong). For the purpose of defining "positive", the proportion and intensity scores were added to obtain a total score (range 0-8). ER and PgR "positive" (total score >2) were defined in studies correlating IHC total scores with clinical outcome in patients receiving hormonal therapy (see: Modern Pathol 11:155, 1998; J Clin Oncol 17:1474, 1999; Int J Cancer 89:111, 2000; Breast Cancer Res Treat 76:S36[abst#30], 2002). The immunohistochemistry test was developed and its performance characteristics determined by [facility], Pathology Laboratory. It has not been cleared or approved by the U.S. Food and Drug Administration. The FDA has determined that such clearanceor approval is not necessary. The test is used for clinical purposes. It should not be regarded as investigational or for research. This laboratory is certified under the Clinical Laboratory Improvement Amendments of 1988 (CLIA-88) as qualified to perform high complexity clinical laboratory testing.[id number] 08:13:00 Test Item Value Reference Range Interpretation Comments POC-CREATININE 0.6 mg/dL 0.6-1.[address] [facility] [address] ([facility]) (test [place] code = 1859) [address] POC-EGFR ([facility]) 99 mL/min/1.73M2 (test code = 1860)
--- NOTE | 2021-02-23 09:40 | RAD REPORT ---
EXAM DESCRIPTION: Shoulder Right 2 View - 02/23/2021 9:07 am CLINICAL HISTORY: PAIN, fall COMPARISON: Clavicle Right dated 02/23/2021 TECHNIQUE: AP internal rotation and scapula Y-views obtained. FINDINGS: No dislocation of the humeral head. There is fracture involving the greater tuberosity wit h 8 mm of distraction. On the two views, the surgical neck is not optimally visualized for possible f racture at this site. Acromial humeral joint space is normal. Inferiorly directed clavicle spurring is present encroaching on the acromial humeral joint space. No acute or suspicious findings. IMPRESSION: Proximal right humerus greater tuberosity fracture with 8 mm of distraction. Surgical ne ck is not optimally visualize. No dislocation of the humeral head. Prominent clavicle spur encroaching on the acromial humeral joint space.
--- NOTE | 2021-02-23 09:48 | RAD REPORT ---
EXAM DESCRIPTION: RAD - Clavicle Right - 02/23/2021 9:07 am CLINICAL HISTORY: PAIN COMPARISON: No comparisons FINDINGS: No fracture of the clavicle is present. There is a moderate-sized inferiorly directed spur from the clavicle at the AC joint. A smaller acromion spur is present. The acromial dermal joint spa ce is normal. Greater tuberosity fracture is present with 8 mm of distraction. A transverse surgical neck fracture is not confirmed though the surgical neck region is not optimally visualized. IMPRESSION: Clavicle and acromion spurring at the AC joint. No clavicle fracture or AC joint separat ion. Fracture of the greater tuberosity proximal humerus with 8 mm distraction.
--- NOTE | 2021-02-23 09:49 | RAD REPORT ---
EXAM DESCRIPTION: RAD - Knee Right 3 View - 02/23/2021 9:07 am CLINICAL HISTORY: PAIN, fall COMPARISON: No comparisons FINDINGS: No fracture, dislocation or periosteal reaction.No measurable joint effusion. Medial anthony rtment narrowing is present with moderately large medial compartment marginal spurs. There is spurrin g along the tibial spine. More mild lateral compartment marginal spurring seen. Large spur projects f rom the superior margin of the patella. No foreign body or other soft tissue abnormality. IMPRESSION: Moderately prominent knee joint degenerative change with no acute bone or joint finding identifiable. Clinical concerns for internal derangement or occult bony injury could be further assessed with MR im aging.
--- NOTE | 2021-02-23 10:10 | EDPHYS ---
Physician Documentation [facility] Name: Gi Sparks Age: 75 yrs Sex: Female : 1945 Arrival Date: 02/23/2021 Time: 08:24 Bed Waiting Private MD: ED Physician Lester Walton HPI: 02/23 08:37 This 75 yrs old Female presents to ER via EMS with complaints of Fall Injury, kdr Arm Pain, Knee Pain. 08:37 Details of fall: The patient fell from an upright position, while standing, while kdr walking. Onset: The symptoms/episode began/occurred suddenly, just prior to arrival. Associated injuries: The patient sustained Right shoulder, right knee. Severity of symptoms: At their worst the symptoms were mild, in the emergency department the symptoms are unchanged. The patient has not experienced similar symptoms in the past. The patient has not recently seen a physician. Historical: - Allergies: 12:11 Codeine; ll1 - PMHx: 12:11 GERD; Hypertension; neuropathy; restless leg; Hyperlipidemia; ll1 - Immunization history:: Client reports receiving the 2nd dose of the Covid vaccine. - Social history:: Smoking status: Patient denies any tobacco usage or history of. ROS: 08:37 Constitutional: Negative for fever, chills, and weight loss, Eyes: Negative for injury, kdr pain, redness, and discharge, ENT: Negative for injury, pain, and discharge, Neck: Negative for injury, pain, and swelling, Cardiovascular: Negative for chest pain, palpitations, and edema, Respiratory: Negative for shortness of breath, cough, wheezing, and pleuritic chest pain, Abdomen/GI: Negative for abdominal pain, nausea, vomiting, diarrhea, and constipation, Back: Negative for injury and pain, : Negative for injury, bleeding, discharge, and swelling, Neuro: Negative for headache, weakness, numbness, tingling, and seizure activity. Psych: Negative for depression, anxiety, suicide ideation, homicidal ideation, and hallucinations, Allergy/Immunology: Negative for hives, rash, and allergies, Endocrine: Negative for neck swelling, polydipsia, polyuria, polyphagia, and marked weight changes, Hematologic/Lymphatic: Negative for swollen nodes, abnormal bleeding, and unusual bruising. 08:37 MS/extremity: Positive for injury or acute deformity, Patient has pain in her right shoulder and right knee with an abrasion to the anterior aspect of her right knee. Exam: 08:37 Constitutional: This is a well developed, well nourished patient who is awake, alert, kdr and in no acute distress. Head/Face: Normocephalic, atraumatic. Eyes: Pupils equal round and reactive to light, extra-ocular motions intact. Lids and lashes normal. Conjunctiva and sclera are non-icteric and not injected. Cornea within normal limits. Periorbital areas with no swelling, redness, or edema. Neck: Trachea midline, no thyromegaly or masses palpated, and no cervical lymphadenopathy. Supple, full range of motion without nuchal rigidity, or vertebral point tenderness. No Meningismus. Chest/axilla: Normal chest wall appearance and motion. Nontender with no deformity. No lesions are appreciated. Cardiovascular: Regular rate and rhythm with a normal S1 and S2. No gallops, murmurs, or rubs. Normal PMI, no JVD. No pulse deficits. Respiratory: Lungs have equal breath sounds bilaterally, clear to auscultation and percussion. No rales, rhonchi or wheezes noted. No increased work of breathing, no retractions or nasal flaring. Abdomen/GI: Soft, non-tender, with normal bowel sounds. No distension or tympany. No guarding or rebound. No evidence of tenderness throughout. Back: No spinal tenderness. No costovertebral tenderness. Full range of motion. Neuro: Awake and alert, GCS 15, oriented to person, place, time, and situation. Cranial nerves II-XII grossly intact. Motor strength 5/5 in all extremities. Sensory grossly intact. Cerebellar exam normal. Normal gait. Psych: Awake, alert, with orientation to person, place and time. Behavior, mood, and affect are within normal limits. 08:37 Skin: injury, abrasion(s), small abrasion noted, of the right knee. Vital Signs: 08:29 BP 165 / 68; Pulse 56; Resp 18; Temp 97; Pulse Ox 96% ; da3 12:13 BP 171 / 82; Pulse 52; Resp 17; ll1 MDM: 08:37 Data reviewed: vital signs, nurses notes, radiologic studies. Counseling: I had a kdr detailed discussion with the patient and/or guardian regarding: the historical points, exam findings, and any diagnostic results supporting the discharge/admit diagnosis, radiology results, the need for outpatient follow up. 10:09 Patient medically screened. kdr 02/23 08:37 Order name: Shoulder Right (2 View) XRAY; Complete Time: 10:06 kdr 02/23 08:37 Order name: Clavicle Right XRAY; Complete Time: 10:06 kdr 02/23 08:37 Order name: Knee Right 3 View XRAY; Complete Time: 10:06 kdr 02/23 10:07 Order name: Sling; Complete Time: 11:46 kdr Administered Medications: 11:52 Drug: Tetanus-Diphtheria Toxoid Adult 0.5 ml {Punch Box Tender: Adea. Exp: ll1 10/05/2022. Lot #: [id number]. } Route: IM; Site: left vastus lateralis; 12:22 Follow up: Response: No adverse reaction; RASS: Alert and Calm (0) ll1 12:10 Drug: [place] (HYDROcodone-acetaminophen) 10 mg-325 mg 1 tabs Route: PO; ll1 12:22 Follow up: Response: No adverse reaction ll1 Disposition Summary: 02/23/21 10:09 Discharge Ordered Location: Home kdr Problem: new kdr Symptoms: have improved kdr Condition: Stable kdr Diagnosis - Proximal right humerus greater tuberosity fracture with 8 mm of distraction kdr Followup: kdr - With: Private Physician - When: 2 - 3 days - Reason: If symptoms return, Further diagnostic work-up, Recheck today's complaints, Continuance of care, Re-evaluation by your physician Followup: kdr - With: Asif Cisneros MD - When: 2 - 3 days - Reason: If symptoms return, Further diagnostic work-up, Recheck today's complaints, Continuance of care, Re-evaluation by your physician Discharge Instructions: - Discharge Summary Sheet kdr - Humerus Fracture Treated With Immobilization, [id number] kdr Forms: - Medication Reconciliation Form kdr - Thank You Letter kdr - Prescription Opioid Use kdr Prescriptions: - Tramadol 50 mg Oral Tablet - take 1 tablet by ORAL route every 8 hours As needed as needed; 26 tablet; kdr Refills: 0, Product Selection Permitted Signatures: Dispatcher [facility] Lester Lewis MD MD kdr Rigoberto Scruggs RN RN ll1 Iftikhar, Chris, RN RN da3
--- NOTE | 2021-02-23 10:10 | ER ---
Nurse's Notes [facility] Name: Gi Sparks Age: 75 yrs Sex: Female : 1945 Arrival Date: 02/23/2021 Time: 08:24 Bed Waiting Private MD: Diagnosis: Proximal right humerus greater tuberosity fracture with 8 mm of distraction Presentation: 02/23 08:26 Chief complaint: Patient states: Right Shoulder, right knee. Coronavirus screen: Client da3 denies travel out of the [place] in the last 14 days. At this time, the client does not indicate any symptoms associated with coronavirus-19. Ebola Screen: No symptoms or risks identified at this time. Risk Assessment: Do you want to hurt yourself or someone else? Patient reports no desire to harm self or others. 08:26 Method Of Arrival: EMS: [facility] da3 08:26 Acuity: GUEVARA 3 da3 12:20 Initial Sepsis Screen: Does the patient meet any 2 criteria? No. Patient's initial ll1 sepsis screen is negative. Does the patient have a suspected source of infection? No. Patient's initial sepsis screen is negative. Onset of symptoms was February 23, 2021. Triage Assessment: 08:29 General: Appears uncomfortable, Behavior is calm, cooperative. da3 Historical: - Allergies: 12:11 Codeine; ll1 - PMHx: 12:11 GERD; Hypertension; neuropathy; restless leg; Hyperlipidemia; ll1 - Immunization history:: Client reports receiving the 2nd dose of the Covid vaccine. - Social history:: Smoking status: Patient denies any tobacco usage or history of. Screenin:13 Abuse screen: Denies threats or abuse. Nutritional screening: No deficits noted. ll1 Tuberculosis screening: No symptoms or risk factors identified. Fall Risk IV access (20 points). Gait- Weak (10 pts.). Total [place] Fall Scale indicates Low Risk Score (25-44 pts). Fall prevention measures have been instituted. Side Rails Up X 2 Frequent Obs/Assesments occuring As available Patient and Family Educated on Fall Prevention Program and strategies. Assessment: 12:12 General: Appears in no apparent distress. Behavior is calm, cooperative, appropriate ll1 for age. Pain: Complains of pain in R shoulder Quality of pain is described as aching, Aggravated by increased activity. Musculoskeletal: Circulation, motion, and sensation intact. Capillary refill < 3 seconds, Reports pain in right knee and R shoulder. Injury Description: Bruise. Vital Signs: 08:29 BP 165 / 68; Pulse 56; Resp 18; Temp 97; Pulse Ox 96% ; da3 12:13 BP 171 / 82; Pulse 52; Resp 17; ll1 ED Course: 08:24 Patient arrived in ED. am2 08:28 Triage completed. da3 08:36 Lester Walton MD is Attending Physician. kdr 09:06 Shoulder Right (2 View) XRAY In Process Unspecified. EDMS 09:06 Clavicle Right XRAY In Process Unspecified. EDMS 09:07 Knee Right 3 View XRAY In Process Unspecified. EDMS 10:08 Asif Cisneros MD is Referral Physician. kdr 12:00 Patient placed sling by Dr. Walton. ll1 12:13 Patient has correct armband on for positive identification. Call light in reach. Side ll1 rails up X 1. Cardiac monitoring not applicable on this patient. 12:20 No provider procedures requiring assistance completed. IV discontinued, intact, ll1 bleeding controlled, No redness/swelling at site. Pressure dressing applied. Administered Medications: 11:52 Drug: Tetanus-Diphtheria Toxoid Adult 0.5 ml {Spout Tender: Styloola. Exp: ll1 10/05/2022. Lot #: [id number]. } Route: IM; Site: left vastus lateralis; 12:22 Follow up: Response: No adverse reaction; RASS: Alert and Calm (0) ll1 12:10 Drug: [place] (HYDROcodone-acetaminophen) 10 mg-325 mg 1 tabs Route: PO; ll1 12:22 Follow up: Response: No adverse reaction ll1 Outcome: 10:09 Discharge ordered by . kdr 12:20 Discharged to home via wheelchair. ll1 12:20 Condition: stable 12:20 Discharge instructions given to patient, Instructed on discharge instructions, follow up and referral plans. medication usage, Demonstrated understanding of instructions, follow-up care, medications, splint care, Prescriptions given X 1. 12:22 Patient left the ED. ll1 Signatures: Dispatcher [employer] EDMS Lester Walton MD MD [facility] Gia Gayle Rigoberto Maradiaga RN RN ll1 Chris Buitrago, RN RN da3
[2021-02-23] MEDS ORDERED: TETANUS & DIPHTHERIA TOX,ADULT 0.5 ML VIAL ONE (12:08)
[2021-02-23] MEDS ORDERED: HYDROCODONE/APAP 10/325 TAB ONE (12:14)
[2021-02-23 12:26] VITALS: TEMP 97; O2SAT 96
[2021-02-23 12:29] VITALS: BP 171/82
== END 2021-02-23 12:22 | disposition home or self-care (01) ==
LOC: ER 08:23
DX: S42.251A Displaced fracture of greater tuberosity of right humerus, initial encounter for closed fracture (principal); S80.211A Abrasion, right knee, initial encounter; W19.XXXA Unspecified fall, initial encounter; Y93.01 Activity, walking, marching and hiking; Z23 Encounter for immunization; Z88.5 Allergy status to narcotic agent; I10 Essential (primary) hypertension
CPT/HCPCS: 90471; 90714; 99284

== ENCOUNTER → 2022-05-28 | Day surgery (SDC) | payer OTHER, BC ==
[~2022-05-28] MED LIST: ATROPINE SULF 1 MG/10 ML SYR IV ONE; FENTANYL CITR 100 MCG/2 ML ONE; FLUMAZENIL 0.1 MG/ML (5 mL VIAL) IV ONE; HYDRALAZINE HCL 20 MG/ML VIAL ONE; LIDOCAINE 2% MPF 5 ML VIAL ONE; LIDOCAINE VISCOUS 2% SOLN 15 ML UDC ONE; METOPROLOL TARTRATE 5 MG/5 ML INJ IV ONE; MIDAZOLAM HCL 2 MG/2 ML INJ ONE; MIDAZOLAM HCL 5 ML ONE; NA CHLORIDE 0.9% 500 ML ONE; PHENOL 1.4% ORAL SPRAY 180ML ONE; propofoL 200 MG/20 ML VIAL IV ONE
--- NOTE | 2022-06-11 00:27 | OP ---
Surgeon: CORI GARCIA Procedure Performed: Attempted to perform transesophageal echocardiogram. Indication: Mitral valve regurgitation. Description Of Procedure: After risks, benefits, and alternatives were explained, the patient agreed to procedure. Patient was brought to the cardiac catheterization laboratory and after proper time-o ut, the patient was given sedation with fentanyl and Versed and attempted to insert the MARCI probe; ho wever, she was very combative and fighting the insertion and could not insert the MARCI probe safely so decided to abort the procedure and do it with general anesthesia. Conclusion: Failed attempt of transesophageal echocardiogram due to inability to insert a probe seco ndary to the patient being very combative. Plan: Rearrange with presence of anesthesia. SR/MODL Voice ID: [id number] Report ID: [id number]
== END ==
LOC: EKG 05-23 07:40
PROC: B24BZZ4 Ultrasonography of Heart with Aorta, Transesophageal (ICD-10-PCS; principal; 2022-05-28)
DX: I34.0 Nonrheumatic mitral (valve) insufficiency (principal); D15.1 Benign neoplasm of heart; Z53.8 Procedure and treatment not carried out for other reasons; I12.9 Hypertensive chronic kidney disease with stage 1 through stage 4 chronic kidney disease, or unspecified chronic kidney disease; N18.9 Chronic kidney disease, unspecified; R00.2 Palpitations; E78.2 Mixed hyperlipidemia; G47.33 Obstructive sleep apnea (adult) (pediatric); K21.9 Gastro-esophageal reflux disease without esophagitis; G62.9 Polyneuropathy, unspecified; E66.01 Morbid (severe) obesity due to excess calories; Z68.42 Body mass index [BMI] 45.0-49.9, adult; Z87.891 Personal history of nicotine dependence; Z79.899 Other long term (current) drug therapy; Z82.49 Family history of ischemic heart disease and other diseases of the circulatory system
CPT/HCPCS: 93312; J2250; J3010; J7040; J0360; J0461; J2001; J2704

== ENCOUNTER → 2022-05-28 | Day surgery (SDC) | payer OTHER, BC ==
[~2022-05-28] MED LIST changes: -FENTANYL CITR 100 MCG/2 ML ONE; -FLUMAZENIL 0.1 MG/ML (5 mL VIAL) IV ONE; -HYDRALAZINE HCL 20 MG/ML VIAL ONE; -LIDOCAINE 2% MPF 5 ML VIAL ONE; -METOPROLOL TARTRATE 5 MG/5 ML INJ IV ONE; -MIDAZOLAM HCL 2 MG/2 ML INJ ONE; -MIDAZOLAM HCL 5 ML ONE; -PHENOL 1.4% ORAL SPRAY 180ML ONE; -propofoL 200 MG/20 ML VIAL IV ONE
--- NOTE | 2022-05-28 14:19 | TEE ---
TRANSESOPHAGEAL ECHOCARDIOGRAM REPORT CARDIOLOGY DEPARTMENT DATE OF STUDY: 05/28/2022 HEIGHT: 5 ft 3iN WEIGHT: 255 lbs DIAGNOSIS: POSSIBLE MITRAL VALVE NEOPLASM FIELD [employer] WORK[employer] COMMENTS: MARCI CARDIAC HISTORY: CATHERIZATION: SURGERY: PROSTHETIC VALVE: PACEMAKER: 2 DIMENSIONAL ASSESSMENT: RIGHT ATRIUM: NORMAL LEFT ATRIUM: NORMAL RIGHT VENTRICLE: NORMAL LEFT VENTRICLE: NORMAL TRICUSPID VALVE: MILD TRICUSPID REGURGITATION MITRAL VALVE: CALCIFIED POSTERIOR LEAFLET PULMONIC VALVE: NORMAL AORTIC VALVE: NORMAL PERICARDIAL EFFUSION: NONE AORTIC ROOT: NORMAL EJECTION FRACTION: 55-60 % LEFT VENTRICULAR WALL MOTION: NORMAL DOPPLER/COLOR FLOW: MILD TRICUSPID REGURGITATION/ MILD MITRAL REGURGITATION COMMENTS: 1. TRANSESOPHEGEAL ECHOCARDIOGRAM PROBE WAS INSERTED WITHOUT DIFFICULTY 2. NORMAL LEFT VENTRICULAR EJECTION FRACTION 55-60% WITH NORMAL WALL MOTION 3. CALCIFIED POSTERIOR LEAFLET OF MITRAL VALVE, NO MASS IS SEEN 4. MILD MITRAL REGURGITATION/ MILD TRICUSPID REGURGITATION TECHNOLOGIST: REAGAN ZARAGOZA/ AMY SOMMER
--- NOTE | 2022-05-28 18:17 | OP ---
Date of Procedure: 05/28/2022 Surgeon: CORI GARCIA Procedure Performed: Transesophageal echocardiogram. Indication: Mitral valve mass. Description Of Procedure: After risks, benefits, alternatives were explained, the patient agreed to procedure and signed informed consent. After proper time-out, Anesthesia was in the room and used pr opofol for deep sedation and then MARCI probe was inserted. MARCI was performed and all views were obtai clifton and then MARCI probe was removed without difficulties inserting or removing it. The patient tolera oswald the procedure very well and was sent to recovery in stable condition. Conclusion: Successful transesophageal echocardiogram under anesthesia. /HAILE Voice ID: [id number] Report ID: [id number]
== END ==
LOC: EKG 13:12
DX: D15.1 Benign neoplasm of heart (principal); I34.0 Nonrheumatic mitral (valve) insufficiency; I07.1 Rheumatic tricuspid insufficiency; I12.9 Hypertensive chronic kidney disease with stage 1 through stage 4 chronic kidney disease, or unspecified chronic kidney disease; N18.9 Chronic kidney disease, unspecified; R00.2 Palpitations; E78.2 Mixed hyperlipidemia; G47.33 Obstructive sleep apnea (adult) (pediatric); G25.81 Restless legs syndrome; G62.9 Polyneuropathy, unspecified; K21.9 Gastro-esophageal reflux disease without esophagitis; E66.01 Morbid (severe) obesity due to excess calories; Z68.42 Body mass index [BMI] 45.0-49.9, adult; Z87.891 Personal history of nicotine dependence; Z79.899 Other long term (current) drug therapy; Z91.09 Other allergy status, other than to drugs and biological substances; Z82.49 Family history of ischemic heart disease and other diseases of the circulatory system
CPT/HCPCS: 93312; J7040; J0461

== ENCOUNTER 2022-11-27 05:59 | Observation (INO) | payer OTHER, BC ==
--- NOTE | 2022-11-21 09:31 | RAD REPORT ---
EXAM DESCRIPTION: Ariane Ac (2 Views)11/21/2022 9:22 am CLINICAL HISTORY: Preop for knee surgery. Hypertension COMPARISON: 2019 FINDINGS: The lungs appear clear of acute infiltrate. The heart is normal size IMPRESSION: No acute abnormalities displayed
[2022-11-21 10:48] LABS: Absolute Lymphocytes (CBC) 1.6 K/uL (0.7-4.9); Hematocrit 39.8 % (36.0-45.0); Lymphocytes % 32.2 % (15.3-44.8); MCV 90.2 fL (80-100); MPV 10.7 fL (7.6-11.3); RBC Red Blood Cell Count 4.41 M/uL (3.86-4.86)
[2022-11-21 10:52] LABS: Protime INR 0.95
[2022-11-21 11:10] LABS: Albumin 4.1 g/dL (3.4-5.0); Bilirubin Total 0.6 mg/dL (0.2-1.0); Potassium 4.2 mEq/L (3.5-5.1); Protein, Total 7.6 g/dL (6.4-8.2)
--- NOTE | 2022-11-21 11:20 | EKG ---
Test Date: 2022-11-21 Test Time: 09:13:20 Dietary Manager: RIK MEASUREMENT RESULTS: Intervals: Rate: 43 SC: 200 QRSD: 100 QT: 494 QTc: 417 Booker: P: 48 SC: 200 QRS: -51 T: 45 INTERPRETIVE STATEMENTS: Marked sinus bradycardia with premature atrial complexes Left anterior fascicular block Septal infarct, age undetermined Abnormal ECG Compared to ECG 07/05/2019 13:45:41 Atrial premature complex(es) now present Left anterior fascicular block now present Myocardial infarct finding still present Electronically Signed On 11-21-22 11:19:51 CDT by Jason Pires
[2022-11-27] MEDS ORDERED: CEFAZOLIN SODIUM 2 GM/VIAL ONE (06:32)
[2022-11-27] MEDS ORDERED: Ringers Lactate 1,000 ML IV ONE ×2 (06:32→10:07)
[2022-11-27] MEDS ORDERED: CELECOXIB 100 MG CAPSULE ONE (06:49)
[2022-11-27] MEDS ORDERED: Oxycodone HCl/Acetaminophen 1 TAB TAB ONE (06:49)
[2022-11-27] MEDS ORDERED: GABAPENTIN 100 MG CAP ONE (06:49)
[2022-11-27] MEDS ORDERED: ACETAMINOPHEN 500 MG TAB ONE (06:50)
[2022-11-27] MEDS ORDERED: dexAMETHasone 10 MG/ML VIAL ONE ×2 (06:51→08:03)
[2022-11-27] MEDS ORDERED: LIDOCAINE 1% MPF 5 ML VIAL ONE (06:51)
[2022-11-27] MEDS ORDERED: MIDAZOLAM HCL 2 MG/2 ML INJ ONE (06:52)
[2022-11-27] MEDS ORDERED: EPINEPHRINE/PF 1 MG/ML AMP ONE (06:52)
[2022-11-27] MEDS ORDERED: FENTANYL CITR 100 MCG/2 ML ONE (06:52)
[2022-11-27] MEDS ORDERED: HYDROMORPHONE HCL 1 MG/ML INJ ONE (06:52)
[2022-11-27] MEDS ORDERED: BUPIVACAINE 0.25% PF 30 ML VIAL ONE (06:52)
[2022-11-27] MEDS ORDERED: TRANEXAMIC ACID 1,000 MG/10 ML VIAL IV ONE (07:33)
[2022-11-27] MEDS ORDERED: KETAMINE HCL IN 0.9 % NACL 50 MG/5 ML SYRINGE IV ONE (08:03)
[2022-11-27] MEDS ORDERED: propofoL 200 MG/20 ML VIAL IV ONE (08:03)
[2022-11-27] MEDS ORDERED: LIDOCAINE 2% MPF 5 ML VIAL ONE (08:03)
[2022-11-27] MEDS ORDERED: ONDANSETRON 4 MG/2 ML VIAL ONE (08:04)
[2022-11-27] MEDS ORDERED: NS 0.9% VIAL 20 ML ONE (08:37)
[2022-11-27] MEDS ORDERED: EPHEDRINE SULF 50 MG/ML VIAL ONE (08:38)
[2022-11-27] MEDS ORDERED: GLYCOPYRROLATE 0.2 MG/ML SYR ONE (09:11)
[2022-11-27] MEDS ORDERED: HYOSCYAMINE SULF 0.125 MG TAB PO PRN (11:08)
--- NOTE | 2022-11-27 11:08 | P.BOP ---
Preoperative diagnosis: right knee osteoarthritis Postoperative diagnosis: same Primary procedure: right total knee arthroplasty Domestic Technician: NONE,NONE Estimated blood loss: 40 cc Specimen: right knee bone remnants Findings: see dictation Anesthesia: General Complications: None Implants: [employer] Annette Persona 7 CR femur, D tibia w/ stem, 10 CR poly, 32 patella Fluids & blood products: per anesthesia record; TT: 90 mins @ 300 mmHg Transferred to: Recovery Room Condition: Good
[2022-11-27] MEDS ORDERED: ACETAMINOPHEN 325 MG TABLET PO PRN (11:12)
[2022-11-27] MEDS ORDERED: ONDANSETRON 4 MG/2 ML VIAL IV PRN (11:12)
[2022-11-27] MEDS ORDERED: TRAMADOL HCL 50 MG TAB PO PRN (11:16)
--- OUTSIDE RECORDS SUMMARY | 2022-11-27 11:53 | XMS REPORT | Continuity of Care Document ---
:1945 Author Organization [facility] t Address [address] [facility] [address] [place] [address] Care Team Providers Name Role Phone Sharpless Primary Care Physician Melanie Smart Attending Clinician Unavailable Wilfrid Davalos Attending Clinician Unavailable Gerald Attending Clinician Unavailable Doctor Unassigned, [place] Attending Clinician Unavailable TIMOTHY POLLARD Attending Clinician Unavailable Timothy Pollard MD Attending Clinician ARETHA SALGADO Attending Clinician Unavailable ASAEL UMANZOR Attending Clinician Unavailable JOSE M CLINTON Attending Clinician Unavailable Gerald Admitting Clinician Unavailable Payers Payer Name Policy Type Policy Number Effective Date Expiration Date S [facility] [employer] Blue 6 [id number] [facility] MEDICARE B[place]: [id number] 2011 [facility] 00:00:00 [place]UT[place] [id number] 2012 [place] (PPO[place] 00:00:00 Problems Condition Condition Condition Status Onset Resolution Last Treating Co mments Source Name Details Category Date Date Treatment Clinician Date [id number] Primary Problem Common insomnia Spirit - [facility] Gastroesop Gastroesop Problem C ommon hageal hageal Spirit reflux reflux - [facility] disease disease [facility] [id number] Primary Problem Comm on osteoarthr Spirit itis of - [facility] right knee [facility] Restless Restless Problem Commo n legs leg Spirit syndrome syndrome - [facility] Neuropathy Neuropathy Problem C ommon Spirit [facility] Irritable Irritable Problem Com mon bowel bowel Spirit syndrome syndrome - [facility] (IBS) [facility] Hyperlipid Hyperlipid Problem C ommon emia emia [facility] Essential Essential Problem Com mon hypertensi hypertensi Sp jazzy on on - [facility] Atrial Atrial Problem Common tachycardi tachycardi Sp jazzy a a - [facility] Seasonal Chronic Problem Common allergic seasonal Spirit rhinitis allergic - [facility] rhinitis [facility] No known No known Disease Unive rs active active ity of problems problems [facility] Allergies, Adverse Reactions, Alerts Allergy Allergy Status Severity Reaction(s) Onset Inactive Treating Comm ents Source Name Type Date Date Clinician codeine DA Active [place] [facility] [place] 00[facility] adhesive DA Active [place] [facility] tape 07-28 [place] 00:[facility] codeine DA Active [place] NAUSEA [facility] VOMITING 07-28 [place] 00:00: [facility]ope 00 dic [facility] adhesive DA Active [place] BLISTERS [facility] tape 07-28 [place] 00:00: [facility]ope 00 [facility] adhesive DA Active [place] 0 [facility] [place] codeine DA Active MO 2017-07 [facility] 0[facility] [place] codeine DA Active MO 2017-0 [facility] 9-25 [place] 00:00: Orthope 00 dic [facility] codeine DA Active [place] 0 [facility] 8-08 [place] 00:00: Orthope 00 dic Hospita l FOAM DA Active U [facility] TAPE 8-08 [facility] [place] CODEINE DRUG Active Unknown-Cmnt 2017 Uni vers INGREDI 7-20 ity of 00:00: [place] 00 [facility] Branch Codeine Propensi Active [facility] St ty to 01-23 [facility] adverse 00:[facility]: Medical reaction [address] [place] [address] s codeine codeine Active aversion Common Spirit - [facility] Non-ster Non-ster Active Unknown Commo n oidal oidal Spirit anti-inf anti-inf - [facility] lammator lammator y agent y [facility] NO KNOWN Drug Active Univers ALLERGIE Class ity of [facility] Social History Social Habit Start Date Stop Date Quantity Comments Source History of Common Spirit - Tobacco Use [facility] Tobacco use and 2021-03-28 2021-03-28 Never used Universit y of exposure 00:00:00 00:00:00 [facility] Alcohol intake 2017-01-23 2017-01-23 Current drinker [facility] 00:00:00 00:00:00 of [facility] (finding) Sex Ass[birth year] [facility] 00:00:00 00:00:00 [facility] Smoking Status Start Date Stop Date Source Unknown if ever smoked [facility] Former Smoker 2022-05-13 00:00:00 2022-05-13 00:00:00 Common S pirit - [facility] nter Never smoker [facility] Medications Ordered Filled Start Stop Current Ordering Indication Dosage Frequency Signature Comments Components Source Medication Medication Date Date Medication? Clinician (SIG) Name Name Pregabalin Pregabalin 2021-07 No 1{capsu BID Pregabalin 75 MG 75 MG 1-03 le} 75 MG 00:00: 00 Pregabalin Pregabalin 2021-07 No 1{capsu BID Pregabalin 75 MG 75 MG 1-03 le} 75 MG 00:00: 00 Pregabalin Pregabalin 2021-07 No 1{capsu BID Pregabalin 75 MG 75 MG 1-03 le} 75 MG 00:00: 00 Pregabalin Pregabalin 2021-07 No 1{capsu BID Pregabalin 75 MG 75 MG 1-03 le} 75 MG 00:00: 00 Pregabalin Pregabalin 2021-07 No 1{capsu BID Pregabalin 75 MG 75 MG 1-03 le} 75 MG 00:00: 00 Pregabalin Pregabalin 2021-1 No 1{capsu BID Pregabalin 75 MG 75 MG 1-03 le} 75 MG 00:00: 00 Hyalgan 20 Hyalgan 20 2021-0 No 20mg C ommon mg mg 04-04 Spirit 00:00: - [facility] Hyalgan 20 Hyalgan 20 2021-0 No 20mg C ommon mg mg 04-04 Spirit 00:00: - [facility] Hyalgan 20 Hyalgan 20 2021-0 No 20mg C ommon mg mg 04-04 Spirit 00:00: - [facility] Hyalgan 20 Hyalgan 20 2021-0 No 20mg C ommon mg mg 04-04 Spirit 00:00: - [facility] Hyalgan 20 Hyalgan 20 2021-0 No 20mg C ommon mg mg 04-04 Spirit 00:00: - [facility] Hyalgan 20 Hyalgan 20 2021-0 No 20mg C ommon mg mg 04-04 Spirit 00:00: - [facility] Hyalgan 20 Hyalgan 20 2021-0 No 20mg C ommon mg mg 04-04 Spirit 00:00: - [facility] Hyalgan 20 Hyalgan 20 2021-0 No 20mg C ommon mg mg 04-04 Spirit 00:00: - [facility] Hyalgan 20 Hyalgan 20 2021-0 No 20mg C ommon mg mg 03-28 Spirit 00:00: - [facility] Hyalgan 20 Hyalgan 20 2021-0 No 20mg C ommon mg mg 03-28 Spirit 00:00: - [facility] Hyalgan 20 Hyalgan 20 2021-0 No 20mg C ommon mg mg 03-28 Spirit 00:00: - [facility] Hyalgan 20 Hyalgan 20 2021-0 No 20mg C ommon mg mg 03-28 Spirit 00:00: - [facility] Hyalgan 20 Hyalgan 20 2021-0 No 20mg C ommon mg mg 03-28 Spirit 00:00: - [facility] Hyalgan 20 Hyalgan 20 2021-0 No 20mg C ommon mg mg 03-28 Spirit 00:00: - [facility] Hyalgan 20 Hyalgan 20 2021-0 No 20mg C ommon mg mg 03-28 Spirit 00:00: - [facility] Hyalgan 20 Hyalgan 20 2021-0 No 20mg C ommon mg mg 03-28 Spirit 00:00: - [facility] Hyalgan 20 Hyalgan 20 2021-0 No 20mg C ommon mg mg 03-28 Spirit 00:00: - [facility] Hyalgan 20 Hyalgan 20 2021-0 No 20mg C ommon mg mg 03-28 Spirit 00:00: - [facility] Kenalog Kenalog 2021-0 No 40mg Common (Triamcinol (Triamcinol 9-15 S pirit one) one) 00:00: - CHI 00 [facility] Hyalgan 20 Hyalgan 20 2021-0 No 20mg C ommon mg mg 03-21 Spirit 00:00: - [facility] Naropin Naropin 2021-0 No 5mg Common (Ropivacain (Ropivacain 9-15 S pirit e HCl) e HCl) 00:00: - [facility]I 00 [facility] Kenalog Kenalog 2021-0 No 40mg Common (Triamcinol (Triamcinol 9-15 S pirit one) one) 00:00: - [facility]I 00 [facility] Hyalgan 20 Hyalgan 20 2021-0 No 20mg C ommon mg mg - Spirit 00:00: - [facility] Naropin Naropin 2021-0 No 5mg Common (Ropivacain (Ropivacain 9-15 S pirit e HCl) e HCl) 00:00: - [facility] Kenalog Kenalog 2021-0 No 40mg Common (Triamcinol (Triamcinol 9-15 S pirit one) one) 00:00: - [facility] Hyalgan 20 Hyalgan 20 2021-0 No 20mg C ommon mg mg -15 Spirit 00:00: - [facility] Naropin Naropin 2-0 No 5mg Common (Ropivacain (Ropivacain 9-15 S pirit e HCl) e HCl) 00:00: - CHI 00 [facility] Kenalog Kenalog 2021-0 No 40mg Common (Triamcinol (Triamcinol 9-15 S pirit one) one) 00:00: - [facility]I 00 [facility] Hyalgan 20 Hyalgan 20 2021-0 No 20mg C ommon mg mg 9-15 Spirit 00:00: - [facility]I 00 [facility] Naropin Naropin 2021-0 No 5mg Common (Ropivacain (Ropivacain 9-15 S pirit e HCl) e HCl) 00:00: - CHI 00 [facility] Kenalog Kenalog 2021-0 No 40mg Common (Triamcinol (Triamcinol 9-15 S pirit one) one) 00:00: - [facility]I 00 [facility] Hyalgan 20 Hyalgan 20 2021-0 No 20mg C ommon mg mg 9-15 Spirit 00:00: - [facility] Naropin Naropin 2021-0 No 5mg Common (Ropivacain (Ropivacain 9-15 S pirit e HCl) e HCl) 00:00: - CHI 00 [facility] Kenalog Kenalog 2021-0 No 40mg Common (Triamcinol (Triamcinol 9-15 S pirit one) one) 00:00: - [facility] Hyalgan 20 Hyalgan 20 2021-0 No 20mg C ommon mg mg 9-15 Spirit 00:00: - [facility] Naropin Naropin 2021-0 No 5mg Common (Ropivacain (Ropivacain 9-15 S pirit e HCl) e HCl) 00:00: - CHI 00 [facility] Kenalog Kenalog 2021-0 No 40mg Common (Triamcinol (Triamcinol 9-15 S pirit one) one) 00:00: - [facility] Hyalgan 20 Hyalgan 20 2021-0 No 20mg C ommon mg mg 9-15 Spirit 00:00: - [facility] Naropin Naropin 2021-0 No 5mg Common (Ropivacain (Ropivacain 9-15 S pirit e HCl) e HCl) 00:00: - [facility]I 00 [facility] Kenalog Kenalog 2021-0 No 40mg Common (Triamcinol (Triamcinol 9-15 S pirit one) one) 00:00: - [facility]I 00 [facility] Hyalgan 20 Hyalgan 20 2021-0 No 20mg C ommon mg mg 9-15 Spirit 00:00: - [facility]I 00 [facility] Naropin Naropin 2021-0 No 5mg Common (Ropivacain (Ropivacain 9-15 S pirit e HCl) e HCl) 00:00: - CHI 00 [facility] Kenalog Kenalog 2021-0 No 40mg Common (Triamcinol (Triamcinol 9-15 S pirit one) one) 00:00: - [facility] Hyalgan 20 Hyalgan 20 2021-0 No 20mg C ommon mg mg 9-15 Spirit 00:00: - [facility] Naropin Naropin 2021-0 No 5mg Common (Ropivacain (Ropivacain 9-15 S pirit e HCl) e HCl) 00:00: - [facility] Kenalog Kenalog 2021-0 No 40mg Common (Triamcinol (Triamcinol 9-15 S pirit one) one) 00:00: - [facility] Hyalgan 20 Hyalgan 20 2021-0 No 20mg C ommon mg mg 9-15 Spirit 00:00: - [facility] Naropin Naropin 2021-0 No 5mg Common (Ropivacain (Ropivacain 9-15 S pirit e HCl) e HCl) 00:00: - [facility] Kenalog Kenalog 2021-0 No 40mg Common (Triamcinol (Triamcinol 9-15 S pirit one) one) 00:00: - [facility]I 00 [facility] Hyalgan 20 Hyalgan 20 2021-0 No 20mg C ommon mg mg 9-15 Spirit 00:00: - [facility] Naropin Naropin 2021-0 No 5mg Common (Ropivacain (Ropivacain 9-15 S pirit e HCl) e HCl) 00:00: - [facility]I 00 [facility] Ciprofloxac Ciprofloxac 2021- No 1{table BID Ciprofloxa in HCl 500 in HCl 500 - 05-11 t} kenyetta HCl MG MG 00:00: 00:00 500 MG 00 :00 Rosuvastati Rosuvastati 0 No 1{table QD Rosuvastat n Calcium n Calcium 5-05 t} in Calcium 20 MG 20 MG 00:00: 20 MG 00 Rosuvastati Rosuvastati 0 No 1{table QD Rosuvastat n Calcium n Calcium 5-05 t} in Calcium 20 MG 20 MG 00:00: 20 MG 00 Bromfed DM Bromfed DM 2021- No Bromfed DM 2mg, 30mg, 2mg, 30mg, -08-24 2mg, 30mg, 10mg/5ml 10mg/5ml 00:00: 00:00 10mg/5ml 00 :00 Azithromyci Azithromyci 0 2021- No QD Azithromyc n 250 MG n 250 MG 08-10 in 250 MG 00:00: 00:00 00 :00 loratadine 2020-0 Yes 10mg Take 10 mg U nivers 10 mg 9-22 by mouth. ity of tablet 13:12: [address] loratadine 0 Yes 10mg Take 10 mg U nivers 10 mg 9-22 by mouth. ity of tablet 13:12: [address] gabapentin 2020-0 Yes Univers 600 mg 9-20 ity of tablet 00:00: [address] gabapentin 2020-0 Yes Univers 600 mg 9-20 ity of tablet 00:00: [address] atenoloL 2020-0 Yes Univers 100 mg 9-12 ity of tablet 00:00: [address] atenoloL 2020-0 Yes Univers 100 mg 9-12 ity of tablet 00:00: [address] No known 0 No Univers medications 8-25 ity of 08:42: [address] No known 0 No Univers medications 8-25 ity of 08:42: [place] [address] Medical Branch No known No Univers medications 8-25 ity of 08:42: [place] [address] Medical Branch traMADoL 50 0 Yes TAKE 1 Univ ers mg tablet 8-20 TABLET BY ity o f 00:00: MOUTH [place] EVERY 8 Medical HOURS Branch NEEDED traMADoL 50 2020-0 Yes TAKE 1 Univ ers mg tablet 8-20 TABLET BY ity o f 00:00: MOUTH [place] EVERY 8 Medical HOURS Branch NEEDED cetirizine 2020-0 Yes 10mg Take 10 mg U nivers 10 mg 8-13 by mouth ity of tablet 00:00: daily. [place] [facility] cetirizine Yes 10mg Take 10 mg U nivers 10 mg 8-13 by mouth ity of tablet 00:00: daily. [place] [facility] pantoprazol Yes TAKE 1 Univ ers e 40 mg EC 8-11 TABLET BY ity of tablet 00:00: MOUTH IN [place] [address] THE Medical MORNING Branch OFFICE VISIT REQUIRED FOR ANY ADDITIONAL REFILLS pantoprazol Yes TAKE 1 Univ ers e 40 mg EC 8-11 TABLET BY ity of tablet 00:00: MOUTH IN [place] [address] THE Medical MORNING Branch OFFICE VISIT REQUIRED FOR ANY ADDITIONAL REFILLS rOPINIRole 0 Yes 2mg Take 2 mg Un braden 2 mg tablet 7-23 by mouth ity of 00:00: at [place] [address] bedtime. Medical Branch rOPINIRole 0 Yes 2mg Take 2 mg Un braden 2 mg tablet 7-23 by mouth ity of 00:00: at [place] [address] bedtime. Medical Branch Hyoscyamine Yes TAKE 1 2 Un braden Sulfate 7-01 TABLETS BY ity of 0.125 mg 00:00: MOUTH [place] TbDL 00 EVERY 4 6 Medical HOURS Branch NEEDED pravastatin 2020-0 Yes 80mg Take 80 mg Univers 80 mg 7-01 by mouth ity of tablet 00:00: every [place] [address] morning. Medical Branch Hyoscyamine 0 Yes TAKE 1 2 Un braden Sulfate 7-01 TABLETS BY ity of 0.125 mg 00:00: MOUTH [place] TbDL 00 EVERY 4 6 Medical HOURS Branch NEEDED pravastatin 2020-0 Yes 80mg Take 80 mg Univers 80 mg 7-01 by mouth ity of tablet 00:00: every morning. Medical Branch meclizine 2017-0 Yes 12.5mg Take 12.[address] (ANTIVERT) 7-20 mg by [facility] 12.5 mg 08:10: mouth 3 Medical tablet 55 (three) Center times daily as needed. meclizine 2017-0 Yes 12.5mg Take 12.[address] (ANTIVERT) 7-20 mg by [facility] 12.5 mg 08:10: mouth 3 Medical tablet 55 (three) Center times daily as needed. loratadine 2017-0 Yes 10mg QD Take [address] (CLARITIN) 7-20 by mouth [facility] 10 mg 08:10: daily. Medical tablet 55 [place] loratadine 2017-0 Yes 10mg QD Take [address] (CLARITIN) 7-20 by mouth [facility] 10 mg 08:10: daily. Medical tablet 55 [place] losartan-hy 2017-0 Yes 1{tbl} QD Take [address] droCHLOROth 7-20 tablet by [place] erik iamaggiee 08:10: mouth Medical (HYZAAR) 54 daily. [place] 100-25 mg per tablet PANTOPRAZOL 2017 Yes 40mg QD Take [address] E SODIUM 7-20 by mouth [facility] (PANTOPRAZO 08:10: daily. Medi jim LE ORAL) 54 [place] pravastatin 0 Yes 80mg QD Take [address] (PRAVACHOL) 7-20 by mouth [facility] s 80 MG 08:10: daily. Medical tablet 54 [place] GABAPENTIN 2017- Yes 600mg QD Take [address] ORAL 7-20 mg by [facility] 08:10: mouth Medical 54 daily. [place] Missing or 2017 Yes 1mg QD Take [address] Non-Formula 7-20 by mouth Luke s ry 08:10: daily Medical Medication [facility] HCL- for Restless Leg Syndrome . pravastatin 2017-0 Yes 80mg QD Take [address] (PRAVACHOL) 7-20 by mouth Luke s 80 MG 08:10: daily. Medical tablet 54 [place] GABAPENTIN [address] Yes 600mg QD Take [address] ORAL 7-20 mg by [facility] 08:10: mouth Medical 54 daily. [place] Missing or 2017-0 Yes 1mg QD Take [address] Non-Formula 7-20 by mouth Luke s ry 08:10: daily Medical Medication [facility] HCL- for Restless Leg Syndrome . losartan-hy Yes 1{tbl} QD Take [address] droCHLOROth 7-20 tablet by [place] erik pinedae 08:10: mouth Medical (HYZAAR) 54 daily. Center 100-25 mg per tablet PANTOPRAZOL Yes 40mg QD Take [address] E SODIUM 7-20 by mouth [facility] (PANTOPRAZO 08:10: daily. Medi jim LE ORAL) 54 Center Losartan Losartan No Losartan Potassium-H Potassium-H Potassium- CTZ 100-25 CTZ 100-25 HCTZ MG MG 100-25 MG Pantoprazol Pantoprazol No Pantoprazo e Sodium 40 e Sodium 40 le Sodium MG MG 40 MG Vitamin E Vitamin E No 1{capsu QD Vitamin E 180 MG (400 180 MG (400 le} 180 MG UNIT) UNIT) (400 UNIT) Vitamin Vitamin No Vitamin B-12 2500 B-12 2500 B-12 2500 MCG MCG MCG Atenolol Atenolol No Atenolol 100 MG 100 MG 100 MG Advil PM Advil PM No 2{capsu QD Advil PM 200-25 MG 200-25 MG les_at_ 200-25 MG bedtime _as_nee ded} Pravastatin Pravastatin No Pravastati Sodium 80 Sodium 80 n Sodium MG MG 80 MG rOPINIRole rOPINIRole No QD rOPINIRole HCl 2 MG HCl 2 MG HCl 2 MG Vitamin D3 Vitamin D3 No 1{capsu QD Vitamin D3 50 MCG 50 MCG le} 50 MCG (1999) (1999) (1999) Simethicone Simethicone No 1{table QID Simethicon 125 MG 125 MG t_after e 125 MG _meals_ and_at_ bedtime _as_nee ded} Dicyclomine Dicyclomine No Dicyclomin HCl 20 MG HCl 20 MG e HCl 20 MG Cetirizine Cetirizine No Cetirizine HCl 10 MG HCl 10 MG HCl 10 MG Align Align No Align Prebiotic-P Prebiotic-P Prebiotic- robiotic robiotic Probiotic 5-1.25 5-1.25 5-1.25 MG-GM MG-GM MG-GM Aspirin 81 Aspirin 81 No 1{table QD Aspirin 81 MG MG t} MG Hyoscyamine Hyoscyamine No Hyoscyamin Sulfate Sulfate e Sulfate 0.125 MG 0.125 MG 0.125 MG Vitafusion Vitafusion No QD Vitafusion Calcium Calcium Calcium Calcium Calcium Calcium 500mg,1000 500mg,1000 500mg,1000 IU of IU of IU of Vitamin D Vitamin D Vitamin D Gabapentin Gabapentin No Gabapentin 600 MG 600 MG 600 MG Tylenol Tylenol No 1{table QID Tylenol Extra Extra t_as_ne Extra Strength Strength eded} Strength 500 MG 500 MG 500 MG Tylenol Tylenol No 1{table QID Tylenol Extra Extra t_as_ne Extra Strength Strength eded} Strength 500 MG 500 MG 500 MG Align Align No Align Prebiotic-P Prebiotic-P Prebiotic- robiotic robiotic Probiotic 5-1.25 5-1.25 5-1.25 MG-GM MG-GM MG-GM Losartan Losartan No Losartan Potassium-H Potassium-H Potassium- CTZ 100-25 CTZ 100-25 HCTZ MG MG 100-25 MG Gabapentin Gabapentin No Gabapentin 600 MG 600 MG 600 MG Pantoprazol Pantoprazol No Pantoprazo e Sodium 40 e Sodium 40 le Sodium MG MG 40 MG Advil PM Advil PM No 2{capsu QD Advil PM 200-25 MG 200-25 MG les_at_ 200-25 MG bedtime _as_nee ded} Atenolol Atenolol No Atenolol 100 MG 100 MG 100 MG Pravastatin Pravastatin No Pravastati Sodium 80 Sodium 80 n Sodium MG MG 80 MG rOPINIRole rOPINIRole No QD rOPINIRole HCl 2 MG HCl 2 MG HCl 2 MG Vitamin D3 Vitamin D3 No 1{capsu QD Vitamin D3 50 MCG 50 MCG le} 50 MCG (1999) (1999) (1999) Vitamin Vitamin No Vitamin B-12 2500 B-12 2500 B-12 2500 MCG MCG MCG Aspirin 81 Aspirin 81 No 1{table QD Aspirin 81 MG MG t} MG Cetirizine Cetirizine No Cetirizine HCl 10 MG HCl 10 MG HCl 10 MG Simethicone Simethicone No 1{table QID Simethicon 125 MG 125 MG t_after e 125 MG _meals_ and_at_ bedtime _as_nee ded} Dicyclomine Dicyclomine No Dicyclomin HCl 20 MG HCl 20 MG e HCl 20 MG Vitamin E Vitamin E No 1{capsu QD Vitamin E 180 MG (400 180 MG (400 le} 180 MG UNIT) UNIT) (400 UNIT) Vitafusion Vitafusion No QD Vitafusion Calcium Calcium Calcium Calcium Calcium Calcium 500mg,1000 500mg,1000 500mg,1000 IU of IU of IU of Vitamin D Vitamin D Vitamin D Hyoscyamine Hyoscyamine No Hyoscyamin Sulfate Sulfate e Sulfate 0.125 MG 0.125 MG 0.125 MG rOPINIRole rOPINIRole No QD rOPINIRole HCl 2 MG HCl 2 MG HCl 2 MG Gabapentin Gabapentin No 1{capsu QD Gabapentin 600 MG 600 MG le} 600 MG Vitamin E Vitamin E No 1{capsu QD Vitamin E 180 MG (400 180 MG (400 le} 180 MG UNIT) UNIT) (400 UNIT) Pravastatin Pravastatin No Pravastati Sodium 80 Sodium 80 n Sodium MG MG 80 MG Atenolol Atenolol No Atenolol 100 MG 100 MG 100 MG Pantoprazol Pantoprazol No Pantoprazo e Sodium 40 e Sodium 40 le Sodium MG MG 40 MG Arnulfo 128 5 Arnulfo 128 5 No 1{drop_ 6xD Arnulfo 128 5 % % into_af % fected_ eye} Cetirizine Cetirizine No Cetirizine HCl 10 MG HCl 10 MG HCl 10 MG Tylenol Tylenol No 1{table QID Tylenol Extra Extra t_as_ne Extra Strength Strength eded} Strength 500 MG 500 MG 500 MG Advil PM Advil PM No 2{capsu QD Advil PM 200-25 MG 200-25 MG les_at_ 200-25 MG bedtime _as_nee ded} Align Align No Align Prebiotic-P Prebiotic-P Prebiotic- robiotic robiotic Probiotic 5-1.25 5-1.25 5-1.25 MG-GM MG-GM MG-GM Simethicone Simethicone No 1{table QID Simethicon 125 MG 125 MG t_after e 125 MG _meals_ and_at_ bedtime _as_nee ded} Vitafusion Vitafusion No QD Vitafusion Calcium Calcium Calcium Calcium Calcium Calcium 500mg,1000 500mg,1000 500mg,1000 IU of IU of IU of Vitamin D Vitamin D Vitamin D Aspirin 81 Aspirin 81 No 1{table QD Aspirin 81 MG MG t} MG Vitamin D3 Vitamin D3 No 1{capsu QD Vitamin D3 50 MCG 50 MCG le} 50 MCG (1999 UT) (1999 UT) (1999) Dicyclomine Dicyclomine No Dicyclomin HCl 20 MG HCl 20 MG e HCl 20 MG Losartan Losartan No Losartan Potassium-H Potassium-H Potassium- CTZ 100-25 CTZ 100-25 HCTZ MG MG 100-25 MG Hyoscyamine Hyoscyamine No Hyoscyamin Sulfate Sulfate e Sulfate 0.125 MG 0.125 MG 0.125 MG Vitamin Vitamin No Vitamin B-12 2500 B-12 2500 B-12 2500 MCG MCG MCG Vitamin E Vitamin E No 1{capsu QD Vitamin E 180 MG (400 180 MG (400 le} 180 MG UNIT) UNIT) (400 UNIT) Atenolol Atenolol No Atenolol 100 MG 100 MG 100 MG Arnulfo 128 5 Arnulfo 128 5 No 1{drop_ 6xD Arnulfo 128 5 % % into_af % fected_ eye} Simethicone Simethicone No 1{table QID Simethicon 125 MG 125 MG t_after e 125 MG _meals_ and_at_ bedtime _as_nee ded} Pantoprazol Pantoprazol No Pantoprazo e Sodium 40 e Sodium 40 le Sodium MG MG 40 MG Gabapentin Gabapentin No Gabapentin 600 MG 600 MG 600 MG Cetirizine Cetirizine No Cetirizine HCl 10 MG HCl 10 MG HCl 10 MG Tylenol Tylenol No 1{table QID Tylenol Extra Extra t_as_ne Extra Strength Strength eded} Strength 500 MG 500 MG 500 MG Advil PM Advil PM No 2{capsu QD Advil PM 200-25 MG 200-25 MG les_at_ 200-25 MG bedtime _as_nee ded} Dicyclomine Dicyclomine No Dicyclomin HCl 20 MG HCl 20 MG e HCl 20 MG Align Align No Align Prebiotic-P Prebiotic-P Prebiotic- robiotic robiotic Probiotic 5-1.25 5-1.25 5-1.25 MG-GM MG-GM MG-GM Vitafusion Vitafusion No QD Vitafusion Calcium Calcium Calcium Calcium Calcium Calcium 500mg,1000 500mg,1000 500mg,1000 IU of IU of IU of Vitamin D Vitamin D Vitamin D Vitamin Vitamin No Vitamin B-12 2500 B-12 2500 B-12 2500 MCG MCG MCG Vitamin D3 Vitamin D3 No 1{capsu QD Vitamin D3 50 MCG 50 MCG le} 50 MCG (1999) (1999) (1999) Aspirin 81 Aspirin 81 No 1{table QD Aspirin 81 MG MG t} MG Losartan Losartan No Losartan Potassium-H Potassium-H Potassium- CTZ 100-25 CTZ 100-25 HCTZ MG MG 100-25 MG Hyoscyamine Hyoscyamine No Hyoscyamin Sulfate Sulfate e Sulfate 0.125 MG 0.125 MG 0.125 MG rOPINIRole rOPINIRole No QD rOPINIRole HCl 2 MG HCl 2 MG HCl 2 MG Tylenol Tylenol No 1{table QID Tylenol Extra Extra t_as_ne Extra Strength Strength eded} Strength 500 MG 500 MG 500 MG Arnulfo 128 5 Arnulfo 128 5 No 1{drop_ 6xD Arnulfo 128 5 % % into_af % fected_ eye} Cetirizine Cetirizine No Cetirizine HCl 10 MG HCl 10 MG HCl 10 MG Aspirin 81 Aspirin 81 No 1{table QD Aspirin 81 MG MG t} MG Advil PM Advil PM No 2{capsu QD Advil PM 200-25 MG 200-25 MG les_at_ 200-25 MG bedtime _as_nee ded} Simethicone Simethicone No 1{table QID Simethicon 125 MG 125 MG t_after e 125 MG _meals_ and_at_ bedtime _as_nee ded} Vitamin D3 Vitamin D3 No 1{capsu QD Vitamin D3 50 MCG 50 MCG le} 50 MCG (1999) (1999) (1999) Align Align No Align Prebiotic-P Prebiotic-P Prebiotic- robiotic robiotic Probiotic 5-1.25 5-1.25 5-1.25 MG-GM MG-GM MG-GM Gabapentin Gabapentin No Gabapentin 600 MG 600 MG 600 MG Dicyclomine Dicyclomine No Dicyclomin HCl 20 MG HCl 20 MG e HCl 20 MG Atenolol Atenolol No Atenolol 100 MG 100 MG 100 MG Vitamin E Vitamin E No 1{capsu QD Vitamin E 180 MG (400 180 MG (400 le} 180 MG UNIT) UNIT) (400 UNIT) Pantoprazol Pantoprazol No Pantoprazo e Sodium 40 e Sodium 40 le Sodium MG MG 40 MG Vitamin Vitamin No Vitamin B-12 2500 B-12 2500 B-12 2500 MCG MCG MCG Losartan Losartan No Losartan Potassium-H Potassium-H Potassium- CTZ 100-25 CTZ 100-25 HCTZ MG MG 100-25 MG Hyoscyamine Hyoscyamine No Hyoscyamin Sulfate Sulfate e Sulfate 0.125 MG 0.125 MG 0.125 MG Vitafusion Vitafusion No QD Vitafusion Calcium Calcium Calcium Calcium Calcium Calcium 500mg,1000 500mg,1000 500mg,1000 IU of IU of IU of Vitamin D Vitamin D Vitamin D rOPINIRole rOPINIRole No QD rOPINIRole HCl 2 MG HCl 2 MG HCl 2 MG Simethicone Simethicone No 1{table QID Simethicon 125 MG 125 MG t_after e 125 MG _meals_ and_at_ bedtime _as_nee ded} Aspirin 81 Aspirin 81 No 1{table QD Aspirin 81 MG MG t} MG Vitamin Vitamin No Vitamin B-12 2500 B-12 2500 B-12 2500 MCG MCG MCG Align Align No Align Prebiotic-P Prebiotic-P Prebiotic- robiotic robiotic Probiotic 5-1.25 5-1.25 5-1.25 MG-GM MG-GM MG-GM rOPINIRole rOPINIRole No QD rOPINIRole HCl 2 MG HCl 2 MG HCl 2 MG Vitamin E Vitamin E No 1{capsu QD Vitamin E 180 MG (400 180 MG (400 le} 180 MG UNIT) UNIT) (400 UNIT) Rosuvastati Rosuvastati No Rosuvastat n Calcium n Calcium in Calcium 20 MG 20 MG 20 MG Tylenol Tylenol No 1{table QID Tylenol Extra Extra t_as_ne Extra Strength Strength eded} Strength 500 MG 500 MG 500 MG Pantoprazol Pantoprazol No Pantoprazo e Sodium 40 e Sodium 40 le Sodium MG MG 40 MG Losartan Losartan No Losartan Potassium-H Potassium-H Potassium- CTZ 100-25 CTZ 100-25 HCTZ MG MG 100-25 MG Advil PM Advil PM No 2{capsu QD Advil PM 200-25 MG 200-25 MG les_at_ 200-25 MG bedtime _as_nee ded} Gabapentin Gabapentin No BID Gabapentin 600 MG 600 MG 600 MG Atenolol Atenolol No Atenolol 100 MG 100 MG 100 MG Vitamin D3 Vitamin D3 No 1{capsu QD Vitamin D3 50 MCG 50 MCG le} 50 MCG (1999) (1999) (1999) Dicyclomine Dicyclomine No Dicyclomin HCl 20 MG HCl 20 MG e HCl 20 MG Cetirizine Cetirizine No Cetirizine HCl 10 MG HCl 10 MG HCl 10 MG Arnulfo 128 5 Arnulfo 128 5 No 1{drop_ 6xD Arnulfo 128 5 % % into_af % fected_ eye} Vitafusion Vitafusion No QD Vitafusion Calcium Calcium Calcium Calcium Calcium Calcium 500mg,1000 500mg,1000 500mg,1000 IU of IU of IU of Vitamin D Vitamin D Vitamin D Hyoscyamine Hyoscyamine No Hyoscyamin Sulfate Sulfate e Sulfate 0.125 MG 0.125 MG 0.125 MG Melatonin Melatonin No Melatonin Losartan Losartan No Losartan Potassium-H Potassium-H Potassium- CTZ 100-25 CTZ 100-25 HCTZ MG MG 100-25 MG Vitamin E Vitamin E No 1{capsu QD Vitamin E 180 MG (400 180 MG (400 le} 180 MG UNIT) UNIT) (400 UNIT) Vitafusion Vitafusion No QD Vitafusion Calcium Calcium Calcium Calcium Calcium Calcium 500mg,1000 500mg,1000 500mg,1000 IU of IU of IU of Vitamin D Vitamin D Vitamin D Pantoprazol Pantoprazol No Pantoprazo e Sodium 40 e Sodium 40 le Sodium MG MG 40 MG Cetirizine Cetirizine No Cetirizine HCl 10 MG HCl 10 MG HCl 10 MG Simethicone Simethicone No 1{table QID Simethicon 125 MG 125 MG t_after e 125 MG _meals_ and_at_ bedtime _as_nee ded} Tylenol Tylenol No 1{table QID Tylenol Extra Extra t_as_ne Extra Strength Strength eded} Strength 500 MG 500 MG 500 MG Rosuvastati Rosuvastati No Rosuvastat n Calcium n Calcium in Calcium 20 MG 20 MG 20 MG Hyoscyamine Hyoscyamine No Hyoscyamin Sulfate Sulfate e Sulfate 0.125 MG 0.125 MG 0.125 MG Gabapentin Gabapentin No BID Gabapentin 600 MG 600 MG 600 MG Vitamin D3 Vitamin D3 No 1{capsu QD Vitamin D3 50 MCG 50 MCG le} 50 MCG (1999) (1999) (1999) Vitamin Vitamin No Vitamin B-12 2500 B-12 2500 B-12 2500 MCG MCG MCG rOPINIRole rOPINIRole No QD rOPINIRole HCl 2 MG HCl 2 MG HCl 2 MG Dicyclomine Dicyclomine No Dicyclomin HCl 20 MG HCl 20 MG e HCl 20 MG Aspirin 81 Aspirin 81 No 1{table QD Aspirin 81 MG MG t} MG Align Align No Align Prebiotic-P Prebiotic-P Prebiotic- robiotic robiotic Probiotic 5-1.25 5-1.25 5-1.25 MG-GM MG-GM MG-GM Atenolol Atenolol No Atenolol 100 MG 100 MG 100 MG Gas-X Gas-X No Gas-X Arnulfo 128 5 Arnulfo 128 5 No 1{drop_ 6xD Arnulfo 128 5 % % into_af % fected_ eye} Advil PM Advil PM No 2{capsu QD Advil PM 200-25 MG 200-25 MG les_at_ 200-25 MG bedtime _as_nee ded} Turmeric Turmeric No Turmeric Curcumin Curcumin Curcumin Simethicone Simethicone No 1{table QID Simethicon 125 MG 125 MG t_after e 125 MG _meals_ and_at_ bedtime _as_nee ded} Vitamin E Vitamin E No 1{capsu QD Vitamin E 180 MG (400 180 MG (400 le} 180 MG UNIT) UNIT) (400 UNIT) Tylenol Tylenol No 1{table QID Tylenol Extra Extra t_as_ne Extra Strength Strength eded} Strength 500 MG 500 MG 500 MG Melatonin Melatonin No Melatonin Rosuvastati Rosuvastati No Rosuvastat n Calcium n Calcium in Calcium 20 MG 20 MG 20 MG Align Align No Align Prebiotic-P Prebiotic-P Prebiotic- robiotic robiotic Probiotic 5-1.25 5-1.25 5-1.25 MG-GM MG-GM MG-GM Arnulfo 128 5 Arnulfo 128 5 No 1{drop_ 6xD Arnulfo 128 5 % % into_af % fected_ eye} Vitamin Vitamin No Vitamin B-12 2500 B-12 2500 B-12 2500 MCG MCG MCG Advil PM Advil PM No 2{capsu QD Advil PM 200-25 MG 200-25 MG les_at_ 200-25 MG bedtime _as_nee ded} Vitafusion Vitafusion No QD Vitafusion Calcium Calcium Calcium Calcium Calcium Calcium 500mg,1000 500mg,1000 500mg,1000 IU of IU of IU of Vitamin D Vitamin D Vitamin D Turmeric Turmeric No Turmeric Curcumin Curcumin Curcumin Pantoprazol Pantoprazol No Pantoprazo e Sodium 40 e Sodium 40 le Sodium MG MG 40 MG rOPINIRole rOPINIRole No QD rOPINIRole HCl 2 MG HCl 2 MG HCl 2 MG Atenolol Atenolol No Atenolol 100 MG 100 MG 100 MG Gas-X Gas-X No Gas-X Gabapentin Gabapentin No BID Gabapentin 600 MG 600 MG 600 MG Losartan Losartan No Losartan Potassium-H Potassium-H Potassium- CTZ 100-25 CTZ 100-25 HCTZ MG MG 100-25 MG Hyoscyamine Hyoscyamine No Hyoscyamin Sulfate Sulfate e Sulfate 0.125 MG 0.125 MG 0.125 MG Cetirizine Cetirizine No Cetirizine HCl 10 MG HCl 10 MG HCl 10 MG Aspirin 81 Aspirin 81 No 1{table QD Aspirin 81 MG MG t} MG Vitamin D3 Vitamin D3 No 1{capsu QD Vitamin D3 50 MCG 50 MCG le} 50 MCG (1999) (1999) (1999) Dicyclomine Dicyclomine No Dicyclomin HCl 20 MG HCl 20 MG e HCl 20 MG Vitamin Vitamin No Vitamin B-12 2500 B-12 2500 B-12 2500 MCG MCG MCG Aspirin 81 Aspirin 81 No 1{table QD Aspirin 81 MG MG t} MG Align Align No Align Prebiotic-P Prebiotic-P Prebiotic- robiotic robiotic Probiotic 5-1.25 5-1.25 5-1.25 MG-GM MG-GM MG-GM Melatonin Melatonin No Melatonin Cetirizine Cetirizine No Cetirizine HCl 10 MG HCl 10 MG HCl 10 MG Advil PM Advil PM No 2{capsu QD Advil PM 200-25 MG 200-25 MG les_at_ 200-25 MG bedtime _as_nee ded} Hyoscyamine Hyoscyamine No Hyoscyamin Sulfate Sulfate e Sulfate 0.125 MG 0.125 MG 0.125 MG Arnulfo 128 5 Arnulfo 128 5 No 1{drop_ 6xD Arnulfo 128 5 % % into_af % fected_ eye} rOPINIRole rOPINIRole No QD rOPINIRole HCl 2 MG HCl 2 MG HCl 2 MG Gabapentin Gabapentin No BID Gabapentin 600 MG 600 MG 600 MG Turmeric Turmeric No Turmeric Curcumin Curcumin Curcumin Pantoprazol Pantoprazol No Pantoprazo e Sodium 40 e Sodium 40 le Sodium MG MG 40 MG Vitafusion Vitafusion No QD Vitafusion Calcium Calcium Calcium Calcium Calcium Calcium 500mg,1000 500mg,1000 500mg,1000 IU of IU of IU of Vitamin D Vitamin D Vitamin D Atenolol Atenolol No Atenolol 100 MG 100 MG 100 MG Rosuvastati Rosuvastati No Rosuvastat n Calcium n Calcium in Calcium 20 MG 20 MG 20 MG Dicyclomine Dicyclomine No Dicyclomin HCl 20 MG HCl 20 MG e HCl 20 MG Losartan Losartan No Losartan Potassium-H Potassium-H Potassium- CTZ 100-25 CTZ 100-25 HCTZ MG MG 100-25 MG Vitamin D3 Vitamin D3 No 1{capsu QD Vitamin D3 50 MCG 50 MCG le} 50 MCG (1999) (1999) (1999) Gas-X Gas-X No Gas-X Tylenol Tylenol No 1{table QID Tylenol Extra Extra t_as_ne Extra Strength Strength eded} Strength 500 MG 500 MG 500 MG Simethicone Simethicone No 1{table QID Simethicon 125 MG 125 MG t_after e 125 MG _meals_ and_at_ bedtime _as_nee ded} Vitamin E Vitamin E No 1{capsu QD Vitamin E 180 MG (400 180 MG (400 le} 180 MG UNIT) UNIT) (400 UNIT) Pantoprazol Pantoprazol No Pantoprazo e Sodium 40 e Sodium 40 le Sodium MG MG 40 MG Melatonin Melatonin No 1{table BID Melatonin 10 MG 10 MG t_at_be 10 MG dtime_a s_neede d} Simethicone Simethicone No 1{table QID Simethicon 125 MG 125 MG t_after e 125 MG _meals_ and_at_ bedtime _as_nee ded} Dicyclomine Dicyclomine No Dicyclomin HCl 20 MG HCl 20 MG e HCl 20 MG Cetirizine Cetirizine No Cetirizine HCl 10 MG HCl 10 MG HCl 10 MG Vitamin E Vitamin E No 1{capsu QD Vitamin E 180 MG (400 180 MG (400 le} 180 MG UNIT) UNIT) (400 UNIT) Gabapentin Gabapentin No BID Gabapentin 600 MG 600 MG 600 MG Rosuvastati Rosuvastati No Rosuvastat n Calcium n Calcium in Calcium 20 MG 20 MG 20 MG Vitamin Vitamin No Vitamin B-12 2500 B-12 2500 B-12 2500 MCG MCG MCG Tylenol Tylenol No 1{table QID Tylenol Extra Extra t_as_ne Extra Strength Strength eded} Strength 500 MG 500 MG 500 MG Advil PM Advil PM No 2{capsu QD Advil PM 200-25 MG 200-25 MG les_at_ 200-25 MG bedtime _as_nee ded} Arnulfo 128 5 Arnulfo 128 5 No 1{drop_ 6xD Arnulfo 128 5 % % into_af % fected_ eye} Vitamin D3 Vitamin D3 No 1{capsu QD Vitamin D3 50 MCG 50 MCG le} 50 MCG (1999 UT) (1999 UT) (1999 UT) Turmeric Turmeric No Turmeric Curcumin Curcumin Curcumin Vitafusion Vitafusion No QD Vitafusion Calcium Calcium Calcium Calcium Calcium Calcium 500mg,1000 500mg,1000 500mg,1000 IU of IU of IU of Vitamin D Vitamin D Vitamin D Gas-X Gas-X No Gas-X Hyoscyamine Hyoscyamine No Hyoscyamin Sulfate Sulfate e Sulfate 0.125 MG 0.125 MG 0.125 MG Atenolol Atenolol No Atenolol 100 MG 100 MG 100 MG Simethicone Simethicone No 1{table QID Simethicon 125 MG 125 MG t_after e 125 MG _meals_ and_at_ bedtime _as_nee ded} Aspirin 81 Aspirin 81 No 1{table QD Aspirin 81 MG MG t} MG Align Align No Align Prebiotic-P Prebiotic-P Prebiotic- robiotic robiotic Probiotic 5-1.25 5-1.25 5-1.25 MG-GM MG-GM MG-GM rOPINIRole rOPINIRole No QD rOPINIRole HCl 2 MG HCl 2 MG HCl 2 MG Losartan Losartan No Losartan Potassium-H Potassium-H Potassium- CTZ 100-25 CTZ 100-25 HCTZ MG MG 100-25 MG Vitamin E Vitamin E No 1{capsu QD Vitamin E 180 MG (400 180 MG (400 le} 180 MG UNIT) UNIT) (400 UNIT) Tylenol Tylenol No 1{table QID Tylenol Extra Extra t_as_ne Extra Strength Strength eded} Strength 500 MG 500 MG 500 MG Gas-X Gas-X No Gas-X Gabapentin Gabapentin No BID Gabapentin 600 MG 600 MG 600 MG Melatonin Melatonin No 1{table BID Melatonin 10 MG 10 MG t_at_be 10 MG dtime_a s_neede d} Simethicone Simethicone No 1{table QID Simethicon 125 MG 125 MG t_after e 125 MG _meals_ and_at_ bedtime _as_nee ded} Hyoscyamine Hyoscyamine No Hyoscyamin Sulfate Sulfate e Sulfate 0.125 MG 0.125 MG 0.125 MG Rosuvastati Rosuvastati No Rosuvastat n Calcium n Calcium in Calcium 20 MG 20 MG 20 MG Cetirizine Cetirizine No Cetirizine HCl 10 MG HCl 10 MG HCl 10 MG Vitamin E Vitamin E No 1{capsu QD Vitamin E 180 MG (400 180 MG (400 le} 180 MG UNIT) UNIT) (400 UNIT) Advil PM Advil PM No 2{capsu QD Advil PM 200-25 MG 200-25 MG les_at_ 200-25 MG bedtime _as_nee ded} Melatonin Melatonin No Melatonin Vitafusion Vitafusion No QD Vitafusion Calcium Calcium Calcium Calcium Calcium Calcium 500mg,1000 500mg,1000 500mg,1000 IU of IU of IU of Vitamin D Vitamin D Vitamin D Aspirin 81 Aspirin 81 No 1{table QD Aspirin 81 MG MG t} MG Vitamin Vitamin No Vitamin B-12 2500 B-12 2500 B-12 2500 MCG MCG MCG Pantoprazol Pantoprazol No Pantoprazo e Sodium 40 e Sodium 40 le Sodium MG MG 40 MG Align Align No Align Prebiotic-P Prebiotic-P Prebiotic- robiotic robiotic Probiotic 5-1.25 5-1.25 5-1.25 MG-GM MG-GM MG-GM rOPINIRole rOPINIRole No QD rOPINIRole HCl 2 MG HCl 2 MG HCl 2 MG Losartan Losartan No Losartan Potassium-H Potassium-H Potassium- CTZ 100-25 CTZ 100-25 HCTZ MG MG 100-25 MG Turmeric Turmeric No Turmeric Curcumin Curcumin Curcumin Tylenol Tylenol No 1{table QID Tylenol Extra Extra t_as_ne Extra Strength Strength eded} Strength 500 MG 500 MG 500 MG Arnulfo 128 5 Arnulfo 128 5 No 1{drop_ 6xD Arnulfo 128 5 % % into_af % fected_ eye} Rosuvastati Rosuvastati No Rosuvastat n Calcium n Calcium in Calcium 20 MG 20 MG 20 MG Atenolol Atenolol No Atenolol 100 MG 100 MG 100 MG Dicyclomine Dicyclomine No Dicyclomin HCl 20 MG HCl 20 MG e HCl 20 MG Vitamin D3 Vitamin D3 No 1{capsu QD Vitamin D3 50 MCG 50 MCG le} 50 MCG (1999 UT) (1999 UT) (1999) Align Align No Align Prebiotic-P Prebiotic-P Prebiotic- robiotic robiotic Probiotic 5-1.25 5-1.25 5-1.25 MG-GM MG-GM MG-GM Gas-X Gas-X No Gas-X Gabapentin Gabapentin No BID Gabapentin 600 MG 600 MG 600 MG Melatonin Melatonin No 1{table BID Melatonin 10 MG 10 MG t_at_be 10 MG dtime_a s_neede d} Simethicone Simethicone No 1{table QID Simethicon 125 MG 125 MG t_after e 125 MG _meals_ and_at_ bedtime _as_nee ded} Hyoscyamine Hyoscyamine No Hyoscyamin Sulfate Sulfate e Sulfate 0.125 MG 0.125 MG 0.125 MG Rosuvastati Rosuvastati No Rosuvastat n Calcium n Calcium in Calcium 20 MG 20 MG 20 MG Arnulfo 128 5 Arnulfo 128 5 No 1{drop_ 6xD Arnulfo 128 5 % % into_af % fected_ eye} Cetirizine Cetirizine No Cetirizine HCl 10 MG HCl 10 MG HCl 10 MG Vitamin E Vitamin E No 1{capsu QD Vitamin E 180 MG (400 180 MG (400 le} 180 MG UNIT) UNIT) (400 UNIT) Advil PM Advil PM No 2{capsu QD Advil PM 200-25 MG 200-25 MG les_at_ 200-25 MG bedtime _as_nee ded} Vitafusion Vitafusion No QD Vitafusion Calcium Calcium Calcium Calcium Calcium Calcium 500mg,1000 500mg,1000 500mg,1000 IU of IU of IU of Vitamin D Vitamin D Vitamin D Aspirin 81 Aspirin 81 No 1{table QD Aspirin 81 MG MG t} MG Vitamin Vitamin No Vitamin B-12 2500 B-12 2500 B-12 2500 MCG MCG MCG Pantoprazol Pantoprazol No Pantoprazo e Sodium 40 e Sodium 40 le Sodium MG MG 40 MG Align Align No Align Prebiotic-P Prebiotic-P Prebiotic- robiotic robiotic Probiotic 5-1.25 5-1.25 5-1.25 MG-GM MG-GM MG-GM rOPINIRole rOPINIRole No QD rOPINIRole HCl 2 MG HCl 2 MG HCl 2 MG Losartan Losartan No Losartan Potassium-H Potassium-H Potassium- CTZ 100-25 CTZ 100-25 HCTZ MG MG 100-25 MG Vitamin Vitamin No Vitamin B-12 2500 B-12 2500 B-12 2500 MCG MCG MCG Turmeric Turmeric No Turmeric Curcumin Curcumin Curcumin Tylenol Tylenol No 1{table QID Tylenol Extra Extra t_as_ne Extra Strength Strength eded} Strength 500 MG 500 MG 500 MG Arnulfo 128 5 Arnulfo 128 5 No 1{drop_ 6xD Arnulfo 128 5 % % into_af % fected_ eye} Atenolol Atenolol No Atenolol 100 MG 100 MG 100 MG Dicyclomine Dicyclomine No Dicyclomin HCl 20 MG HCl 20 MG e HCl 20 MG Vitamin D3 Vitamin D3 No 1{capsu QD Vitamin D3 50 MCG 50 MCG le} 50 MCG (1999) (1999 UT) (1999) Advil PM Advil PM No 2{capsu QD Advil PM 200-25 MG 200-25 MG les_at_ 200-25 MG bedtime _as_nee ded} Gas-X Gas-X No Gas-X Gabapentin Gabapentin No BID Gabapentin 600 MG 600 MG 600 MG Melatonin Melatonin No 1{table BID Melatonin 10 MG 10 MG t_at_be 10 MG dtime_a s_neede d} Simethicone Simethicone No 1{table QID Simethicon 125 MG 125 MG t_after e 125 MG _meals_ and_at_ bedtime _as_nee ded} Hyoscyamine Hyoscyamine No Hyoscyamin Sulfate Sulfate e Sulfate 0.125 MG 0.125 MG 0.125 MG Rosuvastati Rosuvastati No Rosuvastat n Calcium n Calcium in Calcium 20 MG 20 MG 20 MG Vitafusion Vitafusion No QD Vitafusion Calcium Calcium Calcium Calcium Calcium Calcium 500mg,1000 500mg,1000 500mg,1000 IU of IU of IU of Vitamin D Vitamin D Vitamin D Cetirizine Cetirizine No Cetirizine HCl 10 MG HCl 10 MG HCl 10 MG Vitamin E Vitamin E No 1{capsu QD Vitamin E 180 MG (400 180 MG (400 le} 180 MG UNIT) UNIT) (400 UNIT) Advil PM Advil PM No 2{capsu QD Advil PM 200-25 MG 200-25 MG les_at_ 200-25 MG bedtime _as_nee ded} Vitafusion Vitafusion No QD Vitafusion Calcium Calcium Calcium Calcium Calcium Calcium 500mg,1000 500mg,1000 500mg,1000 IU of IU of IU of Vitamin D Vitamin D Vitamin D Aspirin 81 Aspirin 81 No 1{table QD Aspirin 81 MG MG t} MG Vitamin Vitamin No Vitamin B-12 2500 B-12 2500 B-12 2500 MCG MCG MCG Pantoprazol Pantoprazol No Pantoprazo e Sodium 40 e Sodium 40 le Sodium MG MG 40 MG Align Align No Align Prebiotic-P Prebiotic-P Prebiotic- robiotic robiotic Probiotic 5-1.25 5-1.25 5-1.25 MG-GM MG-GM MG-GM Tylenol Tylenol No 1{table QID Tylenol Extra Extra t_as_ne Extra Strength Strength eded} Strength 500 MG 500 MG 500 MG Losartan Losartan No Losartan Potassium-H Potassium-H Potassium- CTZ 100-25 CTZ 100-25 HCTZ MG MG 100-25 MG Turmeric Turmeric No Turmeric Curcumin Curcumin Curcumin Turmeric Turmeric No Turmeric Curcumin Curcumin Curcumin rOPINIRole rOPINIRole No QD rOPINIRole HCl 2 MG HCl 2 MG HCl 2 MG Arnulfo 128 5 Arnulfo 128 5 No 1{drop_ 6xD Arnulfo 128 5 % % into_af % fected_ eye} Atenolol Atenolol No Atenolol 100 MG 100 MG 100 MG Dicyclomine Dicyclomine No Dicyclomin HCl 20 MG HCl 20 MG e HCl 20 MG Vitamin D3 Vitamin D3 No 1{capsu QD Vitamin D3 50 MCG 50 MCG le} 50 MCG (1999) (1999 UT) (1999) Pantoprazol Pantoprazol No Pantoprazo e Sodium 40 e Sodium 40 le Sodium MG MG 40 MG Gas-X Gas-X No Gas-X Gabapentin Gabapentin No BID Gabapentin 600 MG 600 MG 600 MG Melatonin Melatonin No 1{table BID Melatonin 10 MG 10 MG t_at_be 10 MG dtime_a s_neede d} Simethicone Simethicone No 1{table QID Simethicon 125 MG 125 MG t_after e 125 MG _meals_ and_at_ bedtime _as_nee ded} Hyoscyamine Hyoscyamine No Hyoscyamin Sulfate Sulfate e Sulfate 0.125 MG 0.125 MG 0.125 MG Rosuvastati Rosuvastati No Rosuvastat n Calcium n Calcium in Calcium 20 MG 20 MG 20 MG rOPINIRole rOPINIRole No QD rOPINIRole HCl 2 MG HCl 2 MG HCl 2 MG Cetirizine Cetirizine No Cetirizine HCl 10 MG HCl 10 MG HCl 10 MG Vitamin E Vitamin E No 1{capsu QD Vitamin E 180 MG (400 180 MG (400 le} 180 MG UNIT) UNIT) (400 UNIT) Advil PM Advil PM No 2{capsu QD Advil PM 200-25 MG 200-25 MG les_at_ 200-25 MG bedtime _as_nee ded} Vitafusion Vitafusion No QD Vitafusion Calcium Calcium Calcium Calcium Calcium Calcium 500mg,1000 500mg,1000 500mg,1000 IU of IU of IU of Vitamin D Vitamin D Vitamin D Aspirin 81 Aspirin 81 No 1{table QD Aspirin 81 MG MG t} MG Vitamin Vitamin No Vitamin B-12 2500 B-12 2500 B-12 2500 MCG MCG MCG Pantoprazol Pantoprazol No Pantoprazo e Sodium 40 e Sodium 40 le Sodium MG MG 40 MG Align Align No Align Prebiotic-P Prebiotic-P Prebiotic- robiotic robiotic Probiotic 5-1.25 5-1.25 5-1.25 MG-GM MG-GM MG-GM Tylenol Tylenol No 1{table QID Tylenol Extra Extra t_as_ne Extra Strength Strength eded} Strength 500 MG 500 MG 500 MG Losartan Losartan No Losartan Potassium-H Potassium-H Potassium- CTZ 100-25 CTZ 100-25 HCTZ MG MG 100-25 MG Atenolol Atenolol No Atenolol 100 MG 100 MG 100 MG Turmeric Turmeric No Turmeric Curcumin Curcumin Curcumin rOPINIRole rOPINIRole No QD rOPINIRole HCl 2 MG HCl 2 MG HCl 2 MG Arnulfo 128 5 Arnulfo 128 5 No 1{drop_ 6xD Arnulfo 128 5 % % into_af % fected_ eye} Atenolol Atenolol No Atenolol 100 MG 100 MG 100 MG Dicyclomine Dicyclomine No Dicyclomin HCl 20 MG HCl 20 MG e HCl 20 MG Vitamin D3 Vitamin D3 No 1{capsu QD Vitamin D3 50 MCG 50 MCG le} 50 MCG (1999) (1999) (1999) Gas-X Gas-X No Gas-X Gas-X Gas-X No Gas-X Gabapentin Gabapentin No BID Gabapentin 600 MG 600 MG 600 MG Melatonin Melatonin No 1{table BID Melatonin 10 MG 10 MG t_at_be 10 MG dtime_a s_neede d} Simethicone Simethicone No 1{table QID Simethicon 125 MG 125 MG t_after e 125 MG _meals_ and_at_ bedtime _as_nee ded} Hyoscyamine Hyoscyamine No Hyoscyamin Sulfate Sulfate e Sulfate 0.125 MG 0.125 MG 0.125 MG Rosuvastati Rosuvastati No Rosuvastat n Calcium n Calcium in Calcium 20 MG 20 MG 20 MG Gabapentin Gabapentin No BID Gabapentin 600 MG 600 MG 600 MG Cetirizine Cetirizine No Cetirizine HCl 10 MG HCl 10 MG HCl 10 MG Vitamin E Vitamin E No 1{capsu QD Vitamin E 180 MG (400 180 MG (400 le} 180 MG UNIT) UNIT) (400 UNIT) Advil PM Advil PM No 2{capsu QD Advil PM 200-25 MG 200-25 MG les_at_ 200-25 MG bedtime _as_nee ded} Vitafusion Vitafusion No QD Vitafusion Calcium Calcium Calcium Calcium Calcium Calcium 500mg,1000 500mg,1000 500mg,1000 IU of IU of IU of Vitamin D Vitamin D Vitamin D Aspirin 81 Aspirin 81 No 1{table QD Aspirin 81 MG MG t} MG Vitamin Vitamin No Vitamin B-12 2500 B-12 2500 B-12 2500 MCG MCG MCG Pantoprazol Pantoprazol No Pantoprazo e Sodium 40 e Sodium 40 le Sodium MG MG 40 MG Align Align No Align Prebiotic-P Prebiotic-P Prebiotic- robiotic robiotic Probiotic 5-1.25 5-1.25 5-1.25 MG-GM MG-GM MG-GM Tylenol Tylenol No 1{table QID Tylenol Extra Extra t_as_ne Extra Strength Strength eded} Strength 500 MG 500 MG 500 MG Losartan Losartan No Losartan Potassium-H Potassium-H Potassium- CTZ 100-25 CTZ 100-25 HCTZ MG MG 100-25 MG Losartan Losartan No Losartan Potassium-H Potassium-H Potassium- CTZ 100-25 CTZ 100-25 HCTZ MG MG 100-25 MG Turmeric Turmeric No Turmeric Curcumin Curcumin Curcumin rOPINIRole rOPINIRole No QD rOPINIRole HCl 2 MG HCl 2 MG HCl 2 MG Arnulfo 128 5 Arnulfo 128 5 No 1{drop_ 6xD Arnlufo 128 5 % % into_af % fected_ eye} Atenolol Atenolol No Atenolol 100 MG 100 MG 100 MG Dicyclomine Dicyclomine No Dicyclomin HCl 20 MG HCl 20 MG e HCl 20 MG Vitamin D3 Vitamin D3 No 1{capsu QD Vitamin D3 50 MCG 50 MCG le} 50 MCG (1999) (1999) (1999) Hyoscyamine Hyoscyamine No Hyoscyamin Sulfate Sulfate e Sulfate 0.125 MG 0.125 MG 0.125 MG Cetirizine Cetirizine No Cetirizine HCl 10 MG HCl 10 MG HCl 10 MG Aspirin 81 Aspirin 81 No 1{table QD Aspirin 81 MG MG t} MG Vitamin D3 Vitamin D3 No 1{capsu QD Vitamin D3 50 MCG 50 MCG le} 50 MCG (1999) (1999) (1999 UT) Dicyclomine Dicyclomine No Dicyclomin HCl 20 MG HCl 20 MG e HCl 20 MG Vitamin Vitamin No Vitamin B-12 2500 B-12 2500 B-12 2500 MCG MCG MCG Aspirin 81 Aspirin 81 No 1{table QD Aspirin 81 MG MG t} MG Align Align No Align Prebiotic-P Prebiotic-P Prebiotic- robiotic robiotic Probiotic 5-1.25 5-1.25 5-1.25 MG-GM MG-GM MG-GM Melatonin Melatonin No Melatonin Cetirizine Cetirizine No Cetirizine HCl 10 MG HCl 10 MG HCl 10 MG Advil PM Advil PM No 2{capsu QD Advil PM 200-25 MG 200-25 MG les_at_ 200-25 MG bedtime _as_nee ded} Hyoscyamine Hyoscyamine No Hyoscyamin Sulfate Sulfate e Sulfate 0.125 MG 0.125 MG 0.125 MG Arnulfo 128 5 Arnulfo 128 5 No 1{drop_ 6xD Arnulfo 128 5 % % into_af % fected_ eye} rOPINIRole rOPINIRole No QD rOPINIRole HCl 2 MG HCl 2 MG HCl 2 MG Gabapentin Gabapentin No BID Gabapentin 600 MG 600 MG 600 MG Turmeric Turmeric No Turmeric Curcumin Curcumin Curcumin Pantoprazol Pantoprazol No Pantoprazo e Sodium 40 e Sodium 40 le Sodium MG MG 40 MG Vitafusion Vitafusion No QD Vitafusion Calcium Calcium Calcium Calcium Calcium Calcium 500mg,1000 500mg,1000 500mg,1000 IU of IU of IU of Vitamin D Vitamin D Vitamin D Atenolol Atenolol No Atenolol 100 MG 100 MG 100 MG Rosuvastati Rosuvastati No Rosuvastat n Calcium n Calcium in Calcium 20 MG 20 MG 20 MG Dicyclomine Dicyclomine No Dicyclomin HCl 20 MG HCl 20 MG e HCl 20 MG Losartan Losartan No Losartan Potassium-H Potassium-H Potassium- CTZ 100-25 CTZ 100-25 HCTZ MG MG 100-25 MG Vitamin D3 Vitamin D3 No 1{capsu QD Vitamin D3 50 MCG 50 MCG le} 50 MCG (1999 [facility]) (1999 UT) (1999) Gas-X Gas-X No Gas-X Tylenol Tylenol No 1{table QID Tylenol Extra Extra t_as_ne Extra Strength Strength eded} Strength 500 MG 500 MG 500 MG Simethicone Simethicone No 1{table QID Simethicon 125 MG 125 MG t_after e 125 MG _meals_ and_at_ bedtime _as_nee ded} Vitamin E Vitamin E No 1{capsu QD Vitamin E 180 MG (400 180 MG (400 le} 180 MG UNIT) UNIT) (400 UNIT) No known No [facility] Immunizations Ordered Filled Immunization Date Status Comments Sour e Immunization Name Name SARS-COV-2 COVID-19 2020-09-09 Completed [facility] SARS-COV-2 COVID-19 2020-09-09 Completed [facility] VACC[facility] 00:00:00 [facility] SARS-COV-2 COVID-19 2020-09-09 Completed [facility] VACC[facility] 00:00:00 [facility] SARS-COV-2 COVID-19 2020-09-09 Completed [facility] VACCINE 00:00:00 [facility] SARS-COV-2 COVID-19 2020-09-09 Completed Unive rsity of MODERNA VACCINE 00:00:00 [place] [facility] SARS-COV-2 COVID-19 2020-09-09 Completed [facility]ive [facility] of MODERNA VACCINE 00:00:00 [place] [facility] SARS-COV-2 COVID-19 2020-09-09 Completed Unive rsity of MODERNA VACCINE 00:00:00 [place] [facility] SARS-COV-2 COVID-19 2020-09-09 Completed Unive rsity of MODERNA VACCINE 00:00:00 [place] [facility] SARS-COV-2 COVID-19 2020-09-09 Completed Unive rsity of MODERNA VACCINE 00:00:00 [place] [facility] SARS-COV-2 COVID-19 2020-08-12 Completed Unive rsity of MODERNA VACCINE 00:00:00 [place] [facility] SARS-COV-2 COVID-19 2020-08-12 Completed Unive rsity of MODERNA VACCINE 00:00:00 [place] [facility] SARS-COV-2 COVID-19 2020-08-12 Completed Unive rsity of MODERNA VACCINE 00:00:00 [place] [facility] SARS-COV-2 COVID-19 2020-08-12 Completed Unive rsity of MODERNA VACCINE 00:00:00 [place] [facility] SARS-COV-2 COVID-19 2020-08-12 Completed [facility]ive rs[facility] of MODERNA VACCINE 00:00:00 [place] [facility] SARS-COV-2 COVID-19 2020-08-12 Completed [facility]ive rs[facility] of MODERNA VACCINE 00:00:00 [place] [facility] SARS-COV-2 COVID-19 2020-08-12 Completed [facility]ive [facility] of MODERNA VACCINE 00:00:00 [facility] SARS-COV-2 COVID-19 2020-08-12 Completed Unive rsity of MODERNA VACCINE 00:00:00 [facility] SARS-COV-2 COVID-19 2020-08-12 Completed Unive rsity of MODERNA VACCINE 00:00:00 [facility] Vital Signs Vital Name Observation Time Observation Value Comments Source height 2022-05-13 15:00:00 66 [in_i] [facility] weight 2022-05-13 15:00:00 255.0 [lb_av] [facility] bmi 2022-05-13 15:00:00 41.15 kg/m2 [facility] height 2022-05-09 10:40:00 66 [in_i] [facility] weight 2022-05-09 10:40:00 255.6 [lb_av] [facility] temperature 2022-05-09 10:40:00 97.5 [degF] [facility] bmi 2022-05-09 10:40:00 41.25 kg/m2 [facility] oximetry 2022-05-09 10:40:00 95 % [facility] respiratory rate 2022-05-09 10:40:00 17 /min Comm on [facility] blood pressure 2022-05-09 10:40:00 132 mm[Hg] [facility] - systolic [facility] blood pressure 2022-05-09 10:40:00 78 [facility]Hg[facility] height 2022-04-04 10:45:00 66 [in_i] [facility] weight 2022-04-04 10:45:00 252 [lb_av] [facility] temperature 2022-04-04 10:45:00 97.1 [degF] [facility] - [facility] bmi 2022-04-04 10:45:00 40.67 kg/m2 [facility] - [facility] blood pressure 2022-04-04 10:45:00 128 mm[Hg] [facility] systolic [facility] blood pressure 2022-04-04 10:45:00 80 mm[Hg] [facility] - diastolic [facility] height 2022-03-28 10:45:00 66 [in_i] [facility] - [facility] weight 2022-03-28 10:45:00 252 [lb_av] [facility] - [facility] temperature 2022-03-28 10:45:00 96.8 [degF] [facility] - [facility] 2022-03-28 10:45:00 40.67 kg/m2 [facility] - [facility] blood pressure 2022-03-28 10:45:00 132 mm[Hg] [facility] - systolic [facility] blood pressure 2022-03-28 10:45:00 82 mm[Hg] [facility] - diastolic [facility] height 2022-03-21 09:00:00 66 [in_i] [facility] - [facility] weight 2022-03-21 09:00:00 252.9 [lb_av] [facility] temperature 2022-03-21 09:00:00 97.0 [degF] [facility] - [facility] bmi 2022-03-21 09:00:00 40.81 kg/m2 [facility] - [facility] blood pressure 2022-03-21 09:00:00 142 mm[Hg] [facility] - systolic [facility] blood pressure 2022-03-21 09:00:00 86 mm[Hg] [facility] - diastolic [facility] height 2022-02-05 14:20:00 66 [in_i] [facility] - [facility] weight 2022-02-05 14:20:00 246 [lb_av] [facility] - [facility] temperature 2022-02-05 14:20:00 97.3 [degF] Common S pirit [facility] bmi 2022-02-05 14:20:00 39.70 kg/m2 [facility] - [facility] oximetry 2022-02-05 14:20:00 95 % [facility] - [facility] blood pressure 2022-02-05 14:20:00 138 mm[Hg] [facility] - systolic [facility] blood pressure 2022-02-05 14:20:00 63 mm[Hg] [facility] - diastolic [facility] height 2021-10-15 13:00:00 66 [in_i] Common [facility] weight 2021-10-15 13:00:00 261 [lb_av] [facility] temperature 2021-10-15 13:00:00 97.5 [degF] [facility] bmi 2021-10-15 13:00:00 42.12 kg/m2 Common [facility] oximetry 2021-10-15 13:00:00 95 % [facility] respiratory rate 2021-10-15 13:00:00 18 /min Comm on [facility] - [facility] blood pressure 2021-10-15 13:00:00 138 mm[Hg] Common [facility] - systolic [facility] blood pressure 2021-10-15 13:00:00 74 mm[Hg] [facility] - diastolic [facility] height 2021-07-16 11:00:00 66 [in_i] Common [facility] weight 2021-07-16 11:00:00 258.0 [lb_av] Common [facility] temperature 2021-07-16 11:00:00 97.0 [degF] Common S pirit [facility] bmi 2021-07-16 11:00:00 41.64 kg/m2 [facility] oximetry 2021-07-16 11:00:00 96 % Common S pirit - [facility] respiratory rate 2021-07-16 11:00:00 16 /min Comm on [facility] blood pressure 2021-07-16 11:00:00 138 mm[Hg] Common [facility] - systolic [facility] blood pressure 2021-07-16 11:00:00 84 mm[Hg] Common [facility] - diastolic [facility] Procedures Procedure Date / Time Performed Performing Clinician [facility] e REFERRAL- 2021-05-03 05:01:00 [facility] Name [facility] REFERRAL- 2021-04-10 05:01:00 [facility]ONSE Name [facility] Branch XR SHOULDER 2+ VW 2021-03-27 20:14:41 Timothy Pollard [facility] RIGHT Medical Branch ASSIGNMENT OF BENEFITS 2021-02-26 18:32:09 Doctor Unassigned, No [facility] Name Medical Branch Encounters Start End Encounter Admission Attending Care Care Encounter Source Date/Time Date/Time Type Type Clinicians Facility Department ID 2022-11-18 Outpatient Boyd, STLMLC STLC [id number] Common 09:14:[id number] [facility] 2022-09-08 Outpatient Boyd, STLMLC STLC [id number] Common 19:54:[address] [facility] 2022-09-05 Outpatient Boyd, STLMLC STLC [id number] Common 16:16:[address] [facility] 2022-08-05 Outpatient Boyd, STLMLC STLC [id number] Common 09:06:[address] [facility] 2022-05-08 Outpatient Boyd, STLMLC STLMLC [id number] Common 08:10:[address] [facility] 2022-03-27 Outpatient Boyd, STLMLC STLMLC [id number] Common 13:55:[address] [facility] 2022-03-04 Outpatient Boyd, STLMLC STLC [id number] Common 15:12:[address] [facility] 2022-02-19 Inpatient GREG DavalosTO HCATO [id number] [facility] 10:00:00 [facility]frid 01 [facility] 2021-10-11 Outpatient Bing, STSONYALC STLMLC [id number] Common 09:02:[id number] [facility] 2021-08-01 Outpatient Bing, STSONYALC STLMLC [id number] Common 14:33:[address] [facility] 2022-05-28 2022-05-28 (TEL) STLMLC STLMLC [id number] Co mmon 00:00:00 00:00:00 [facility] 2022-05-16 2022-05-16 (TEL) STLMLC STLMLC [id number] Co mmon 00:00:00 00:00:00 [facility] 2022-05-13 2022-05-13 SUB ANNUAL STLMLC STLMLC [id number] Common 00:00:00 00:00:00 MCR [facility] WELLNESS - CHI VISIT [facility] 2022-05-13 2022-05-13 (TEL) STLMLC STLMLC [id number] Co mmon 00:00:00 00:00:00 [facility] 2022-05-09 2022-05-09 OFFICE STLMLC STLMLC [id number] Co mmon 00:00:00 00:00:00 VISIT [facility] ESTAB PT - CHI LEVEL 4 [facility] 2022-05-08 2022-05-08 (TEL) STLMLC STLMLC [id number] Co mmon 00:00:00 00:00:00 [facility] 2022-04-04 2022-04-04 (IN/ASP) STLMLC STLMLC [id number] C ommon 00:00:00 00:00:[address] [facility] 2022-03-28 2022-03-28 (IN/ASP) STLMLC STLMLC [id number] C ommon 00:00:00 00:00:[address] [facility] 2022-03-21 2022-03-21 OFFICE STLMLC STLMLC [id number] Co mmon 00:00:00 00:00:00 VISIT NEW Spir it PT LEVEL 4 - [facility] 2022-02-05 2022-02-05 OFFICE STLMLC STLMLC [id number] Co mmon 00:00:00 00:00:00 VISIT EST Spir it PT LEVEL 3 - [facility] 2021-11-09 2021-11-09 (TEL) STLMLC STLMLC [id number] Co mmon 00:00:00 00:00:00 [facility] 2021-10-30 2021-10-30 (TEL) STLMLC STLMLC [id number] Co mmon 00:00:00 00:00:00 [facility] 2021-10-22 2021-10-22 Outpatient FOG_Cornelia AOSM AOSM [id number] Lory 11:38:00 11:38:00 _Toan_ [id number] [facility] 2021-10-15 2021-10-15 OFFICE STLMLC STLMLC [id number] Co mmon 00:00:00 00:00:00 VISIT NEW Spir it PT LEVEL 4 - [facility] 2021-08-09 2021-08-09 (TEL) STLMLC STLMLC [id number] Co mmon 00:00:00 00:00:00 [facility] 2021-07-16 2021-07-16 OFFICE STLMLC STLMLC [id number] Co mmon 00:00:00 00:00:00 VISIT NEW Spir it PT LEVEL 4 [facility] 2021-05-03 2021-05-03 Orders Doctor TORI [id number] Univers 00:00:00 00:00:00 Only Unassigned, MARY [id number] [place] [facility] 4.2.7.2.686 Nikolay as [phone] [place] [address] Branch 2021-04-10 2021-04-10 Orders Doctor TORI 1.2.840.114 [id number] Univers 00:00:00 00:00:00 Only Unassigned, MARY [id number] [place] [facility] 4.2.7.2.686 Nikolay as [phone] [facility] 009 Branch 2021-03-28 2021-03-28 [facility] [id number] Univers 13:00:00 13:00:00 TIMOTHY lawson [facility] 2021-03-27 2021-03-27 [facility] [id number] Univers 14:57:33 23:59:00 Encounter Timothy Galeano [id number] [place] [phone] [facility] [address] [place] 2021-03-27 2021-03-27 [facility] [id number] Univers 00:00:00 00:00:00 TIMOTHY lawson [facility] 2021-03-27 2021-03-27 [facility]phone [facility] [id number] Univers 00:00:00 00:00:00 Timothy Rodriguez [facility] [id number] it y of [place] 4.2.7.2.686 Nikolay as Bernard?Blea [phone] [facility] [address] Medical Office Building 2021-02-26 2021-02-26 [facility] [id number] Univers 13:33:24 15:21:07 Visit Timothy Bragg 350.1.13.10 it y of [place] 4.2.7.2.686 Nikolay as Bernard?Blea [phone] [address] Medical Office Building 2021-02-26 2021-02-26 [facility] [id number] Univers 14:00:00 14:00:00 TIMOTHY lawson [facility] 2021-02-26 2021-02-26 Orders Doctor VALLE 1.2.840.114 [id number] Univers 00:00:00 00:00:00 Only Unassigned, MARY [id number] [place] [facility] 4.2.7.2.686 Nikolay as [phone] [facility] 009 Branch 2021-02-26 2021-02-26 Letter Doctor TORI 1.2.840.114 [id number] Univers 00:00:00 00:00:00 (Out) Unassigned, MARY [id number] [place] [facility]ITAL 4.2.7.2.686 Nikolay as [phone] [facility] 044 Branch 2021-02-26 2021-02-26 Letter Doctor TORI 1.2.840.114 [id number] Univers 00:00:00 00:00:00 (Out) Unassigned, MARY [id number] [place] [facility]OS[facility]ITAL 4.2.7.2.686 Nikolay as [phone] [facility] [address] [place] 2020-09-09 2020-09-09 Outpatient [facility] [id number] Univers 14:20:00 14:20:00 [facility] 2020-08-12 2020-08-12 Outpatient [facility] [id number] Univers 14:30:00 14:30:00 [facility] Results Test Description Test Time Test Comments Results Result [facility] Comments - XR PELVIS 07/082018-07-29 Patient Name: VIEWS 10:31:00 GI BURNETT Unit No: [id number] EXAMS: CPT CODE: [id number] XR PELVIS 07/08 VIEWS 17849 INTRAOPERATIVE LEG LENGTH FILM COMMENT: COMPARISON: No prior exams available. In progress left hip replacement is noted. AP PORTABLE LEFT HIP COMMENT: The patient is status post joint replacement which is articulating normally. at 1031 Reported and signed by: Som Ren MD CC: Wilfrid Davalos MD Technologist: GUERO OWEN RT(R) Transcribed D/ (1031) t.GREGR.JCL [facility] Orthopedic NAME: GI BURNETT [address] [facility] PHYS: MATVA.01 - Wilfrid Davalos : 1945 AGE: 72 SEX: F [place], [place] [address] LOC: Y.311 A PHONE #: [phone] EXAM DATE: 07/28/2018 STATUS: ADM IN FAX #: [phone] RAD #: D/C DT PAGE 1 Signed Report Patient Name: GI BURNETT Unit No: [id number] EXAMS: CPT CODE: [id number] XR PELVIS 1/2 VIEWS 16143 (Continued) Orig Print D/T: S: 07/29/2018 (1034) [facility] Orthopedic NAME: GI BURNETT [address] [facility] PHYS: MATVA. - Wilfrid Davalos : 1945 AGE: 72 SEX: F [place], [place] [address] LOC: Y.311 A PHONE #: [phone] EXAM DATE: 07/28/2018 STATUS: ADM IN FAX #: [phone] RAD #: D/C DT PAGE 2 Signed Report - XR PELVIS 1/2 2018-07-29 Patient Name: VIEWS 10:31:00 GI BURNETT Unit No: [id number] EXAMS: CPT CODE: [id number] XR PELVIS 1/2 VIEWS 98908 INTRAOPERATIVE LEG LENGTH FILM COMMENT: COMPARISON: No prior exams available. In progress left hip replacement is noted. AP PORTABLE LEFT HIP COMMENT: The patient is status post joint replacement which is articulating normally. at 1031 Reported and signed by: Som Ren MD CC: Wilfrid Davalos MD Technologist: KAILA PALMA (RT.R) Transcribed D/ (1031) CaridadL [facility] Orthopedic NAME: GI BURNETT [address] [facility] PHYS: MATKAITLYNN. - Wilfrid Davalos : 1945 AGE: 72 SEX: F [place] [address] LOC: Y.311 A PHONE #: [phone] EXAM DATE: 07/28/2018 STATUS: ADM IN FAX #: [phone] RAD #: D/C DT PAGE 1 Signed Report Patient Name: GI BURNETT Unit No: [id number] EXAMS: CPT CODE: [id number] XR PELVIS 1/2 VIEWS 41899 (Continued) Orig Print D/T: S: 07/29/2018 (1034) [facility] Orthopedic NAME: GI BURNETT [address] [facility] PHYS: MATVA.01 - Wilfrid Davalos : 1945 AGE: 72 SEX: F [place], [place] [address] LOC: Y.311 A PHONE #: [phone] EXAM DATE: 07/28/2018 STATUS: ADM IN FAX #: [phone] RAD #: D/C DT PAGE 2 Signed Report HGB HCT 2018-07-29 06:03:00 Test Item Value Reference Range Interpretation Comme nts HEMOGLOBIN (test code = HGB) 10.2 g/dL 12-16 L HEMATOCRIT (test code = HCT) 31.4 % 37-47 L TISSUE [id number] 15:30:00Surgical Pathology Report Case: [id number] Authorizing Provider: Asael Umanzor MD Collected: 01/23/2017 1428 Ordering Location: [facility] Received: 01/23/2017 1530 Pathologist: Ciarra Felder MD Specimens: A) - Breast, Left, LEFT 4-5 OCLOCK BREAST B) - Breast, Right, RIGHT 9-10 O CLOCK BREAST DUCT A. BREAST, LEFT, 4-5 O'CLOCK, 7 CM FROM NIPPLE, ULTRASOUND GUIDED CORE BIOPSY: - FAT NECROSIS - DENSE STROMAL FIBROSIS - LYMPHOPLASMACYTIC INFILTRATEB. 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 With CD31 immunostain, small vessels and plasma cells are seen throughout the specimen. Factor VIII highlights thesmaller caliber vessels. Plasma cells are stained with both [place] and Lambda immunostains. In the sections examined, no malignancy is identified.Part B: Specimen right breast: No invasive carcinoma is seen.A. 31703, 83421, 09750 x4B. 22451, 79413 [id number] with invasive carcinoma, questionable angiosarcoma, questionable DCISA. [...] were performed on this case and the interpretation is incorporated in the diagnostic report above:A:ALICIA-CYTOKERATIN (AE1/AE3)[id number] VIIIKAPPALAMBDAB:ERPRCAP REGULATION: FIXATION TIME FOR BIOMARKERS ASSESSMENTCollection [...] using clones SP1, 1294, 4B5 (FDA Approved [place] [employer]) and 30- 9 respectively from [place], [place].Control Slides Examined: In-house known ER, MA, HER2 and Ki67 positive controls were evaluated along with test tissue. These control slides run along side of the patients sample show appropriate staining.Interpretive Criteria: The staining results according to the ASCO/CAP guidelines for HER2 (Sage SHAW et al. Arch Pathol Lab Med 2012Apr 12 and ER/MA (Ann NICOLAS et al. Arch Pathol Lab Med 2010; 134:e48-e72) by ASCO/CAP guidelines,ER and MA "positive" requires greater or equal to 1% tumor cells showing nuclear staining. HER 2 fausto"positive" (3+) requires circumferential membrane staining that is complete and intense within more than 10% of the invasive tumor cells. The ER/MA Proportion Score indicates the proportion of positivestaining tumor cells (0 = none; 1 < 1/100; 2 = 1/100-1/10; 3 = 1/10- 1/3; 4 = 1/3-2/3; 5> 2/3).The intensity score indicates the average intensity of positive staining tumor cells (0 = none; 1 = weak; 2 = intermediate; 3 = strong). For the purpose of defining "positive", the proportion and intensity scores were added to obtain a total score (range 0-8). ER and PgR "positive" (total score >2)were defined in studies correlating IHC total scores with clinical outcome in patients receiving hormonal therapy (see: Modern Pathol 11:155, 1998; J Clin Oncol 17:1474, 1998; Int J Cancer 89:111, 2000; Breast Cancer Res Treat 76:S36[abst#30], 2002). The immunohistochemistry test was developed and itsperformance characteristics determined by [facility] Pathology [facility]. Ithas not been cleared or approved by the U.S. Food and Drug Administration. The FDA has determined that such clearance or approval is not necessary. The test is used for clinical purposes. It should notbe regarded as investigational or for research. This laboratory is certified under the Clinical Laboratory Improvement Amendments of 1988 (CLIA-88) as qualified to perform high complexity clinical laboratory testing.POCT-CREATININE 2017-01-23 08:13:00 Test Item Value Reference Range Interpretation Comments POC-CREATININE 0.6 mg/dL 0.6-1.[address] [facility] 2150 ([place]) (test [place] code = 1859) 54947 POC-EGFR ([place]) 99 mL/min/1.73M2 (test code = 1860) Notes Date/Time Note Provider Source 2018-07-29 08:10:00-00:00 [facility] ([facility] Discharge Summary REPORT#:[id number] REPORT STATUS: Signed DATE:07/29/18 TIME: 08 PATIENT: GI BURNETT UNIT #: [id number] ROOM/BED: [address] : [birth year] AGE: 72 SEX: F ATTEND: Jose Davalos MD ADM AUTHOR: Sanaz Leonard NP * ALL edits or amendments must be made on the [employer]/computer document * PCP PCP Discharge to: home General Information Date of discharge: 07/29/18 Hospital course: Discharge Diagnosis: Left Hip Degenerative Disea se Procedure: Left Hip Arthroplasty Hospital Course and Findings The patient underwent the pr ocedure without incident. Findings were significant for degenerative disease of the hip. The patient was hemodynamically and medically monitored during the postoperative per iod. Anticoagulation was instituted for postoperative DVT prophylaxis. Th e patient was progressively able to tolerate PO pain med ications and the appropriate diet. Physical therapy was instituted, with a progressive ability to am bulate and perform exercises. The patient was eventually deemed stable and saf e for discharge. At discharge, the patient was comfortabl e, with a controlled pain level. There were no chest or abdominal symptoms present. Dis charge physical examination demonstrated stable vital signs and no acute dis tress. The patient had an intact wound with no signifi cant drainage, and no calf tenderness and a negative Roberth s sign bilaterally. There were no neurolog ic or vascular deficits or changes from the preoperative state. Laboratory Tests: 07/29 040 Hematology Hgb (12 - 16 g/dL) 10.2 L Hct (37 - 47 %) 31.4 L Vital Signs: Date Time Temp Pulse Resp B/P B/P Pulse O2 O2 F low FiO2 Mean Ox Delivery Rate 07/29 0708 36.7 62 18 117/56 81 96 07/29 0358 36.3 70 18 119/77 89 98 Nasal cannula 07/29 0018 97 CPAP 3.885583 32 07/28 2210 36.5 69 16 116/56 81 97 Simple mask 01/22 2018 96 Nasal 3.433664 32 cannula 07/28 1999 CPAP 07/28 1999 36.3 75 16 137/62 89 99 Nasal cannula 07/28 1808 Nasal 3.487877 cannula 07/28 1802 36.2 77 18 141/63 97 Nasal cannula 07/28 1705 100 Nasal 3.783113 32 cannula 07/28 1600 58 12 111/58 100 Simple 8.303933 mask 07/28 1552 Simple 8.694150 mask 07/28 1545 67 20 105/49 97 Simple 8.865052 mask 07/28 1539 78 14 115/71 97 Simple 8.364478 mask Disposition: Discharged to home / rehab center Discharge Condition: Stable Instructions: Instruction sheet given to patient Activity: Ambulate with assistance, with weight- bearing as instructed in the hospital. Weight bearing limitations wer e reviewed with the patient during the hospitalization. The Patient was supplied with a walker to help with impaired ambulation during surgical recovery. Diet: As per preoperatively Prescriptions 1. Pain Medications: As per discharge prescription, with progressive weaning as pain decreases 2. Anticoagulation: As per discharge prescription, or PreOp anticoa gulant, as discussed with patient Follow-up Appointment: Patient instructe d to arrange appointment for an office visit in 2 weeks Med Rec Med Rec Discharge meds: Stop taking the following medications: VITAMIN E (VITAMIN E) 400 UNITS CAP ORAL DAILY. ACETAMINOPHEN (TYLENOL) 500 MG TAB ORAL EVERY 6 HOURS NEEDED. as needed for PAIN [TAY FUSION VITAMINS] ORAL DAILY. [COCONUT OIL] ORAL DAILY. IBUPROFEN (ADVIL) 200 MG TAB ORAL EVERY 4 HOURS NEEDED. as needed for PAIN [EQUATE SLEEP AID] ORAL AT BEDTIME NEEDED. as needed for SLEEPING. Continue taking these medications: LOSARTAN/HCTZ (HYZAAR 100/25 MG) 1 TAB TAB 1 TABLET ORAL DAILY. amLODIPine (NORVASC) 5 MG TAB 5 MILLIGRAM ORAL DAILY. PANTOPRAZOLE DR (PROTONIX) 40 MG TAB.DR 40 MILLIGRAM ORAL DAILY. PRAVASTATIN (PRAVACHOL) 80 MG TAB 80 MILLIGRAM ORAL BEDTIME. GABAPENTIN (NEURONTIN) 600 MG TAB 600 MILLIGRAM ORAL BEDTIME. rOPINIRole (REQUIP) 1 MG TAB 1 MILLIGRAM ORAL BEDTIME. SIMETHICONE (GAS-X) 80 MG TAB.CHEW 80 MILLIGRAM ORAL TWICE DAILY. HYDROcodone/APAP (NORCO 10/325) 1 TAB TAB 1 TABLET ORAL EVERY 6 HOURS NEEDED. as neede d for PAIN Qty = 28 Instructions: TAKE 1 TABLET BY MOUTH EVERY 6 HOURS NEEDED FOR PAIN traMADol (ULTRAM) 50 MG TAB 50 MILLIGRAM ORAL EVERY 6 HOURS NEEDED. as n eeded for PAIN Qty = 100 Instructions: TAKE 1-2 TABLETS BY MOUTH EVERY 6 HOURS NEED ED FOR PAIN MELOXICAM (MOBIC) 15 MG TAB 15 MILLIGRAM ORAL DAILY. Qty = 30 ASPIRIN EC (ECOTRIN) 81 MG TAB.EC 81 MILLIGRAM ORAL TWICE DAILY. Qty = 60 METHOCARBAMOL (ROBAXIN) 500 MG TAB 500 MILLIGRAM ORAL FOUR TIMES DAILY NEEDED. as needed for MUSCLE SPASMS Qty = 60 Instructions: TAKE 1 TABLET BY MOUTH EVERY 6 HOURS NEEDED FOR MUSCLE SPASMS Electronically Signed by Sanaz Leonard NP on 07/08 09/22 at 0811 RPT #:[id number] END OF REPORT 2018-07-29 08:10:00-00:00 [facility] ([facility]) Discharge Summary REPORT#:[id number] REPORT STATUS: Signed DATE:07/29/18 TIME: 0810 PATIENT: GI BURNETT UNIT #: [id number] ROOM/BED: [address] : 46 AGE: 72 SEX: F ATTEND: Jose Davalos MD ADM AUTHOR: Sanaz Leonard NP * ALL edits or amendments must be made on the [employer]/computer document * PCP PCP Discharge to: home General Information Date of discharge: 07/29/18 Hospital course: Discharge Diagnosis: Left Hip Degenerative Disea se Procedure: Left Hip Arthroplasty Hospital Course and Findings The patient underwent the pr ocedure without incident. Findings were significant for degenerative disease of the hip. The patient was hemodynamically and medically monitored during the postoperative per iod. Anticoagulation was instituted for postoperative DVT prophylaxis. e patient was progressively able to tolerate PO pain med ications and the appropriate diet. Physical therapy was instituted, with a progressive ability to am bulate and perform exercises. The patient was eventually deemed stable and saf e for discharge. At discharge, the patient was comfortabl e, with a controlled pain level. There were no chest or abdominal symptoms present. Dis charge physical examination demonstrated stable vital signs and no acute dis tress. The patient had an intact wound with no signifi cant drainage, and no calf tenderness and a negative Roberth s sign bilaterally. There were no neurolog ic or vascular deficits or changes from the preoperative state. Laboratory Tests: 07/29 0403 Hematology Hgb (12 - 16 g/dL) 10.2 L Hct (37 - 47 %) 31.4 L Vital Signs: Date Time Temp Pulse Resp B/P B/P Pulse O2 O2 F low FiO2 Mean Ox Delivery Rate 07/29 0708 36.7 62 18 117/56 81 96 07/29 0358 36.3 70 18 119/77 89 98 Nasal cannula 07/29 0018 97 CPAP 3.658788 32 07/28 2210 36.5 69 16 116/56 81 97 Simple mask 07/28 2017 96 Nasal 3.397341 32 cannula 07/28 1999 CPAP 07/28 1999 36.3 75 16 137/62 89 99 Nasal cannula 07/28 1808 Nasal 3.247805 cannula 07/28 1803 36.2 77 18 141/63 97 Nasal cannula 07/28 1705 100 Nasal 3.093617 32 cannula 07/28 1600 58 12 111/58 100 Simple 8.474543 mask 07/28 1552 Simple 8.716245 mask 07/28 1545 67 20 105/49 97 Simple 8.261362 mask 07/28 1539 78 14 115/71 97 Simple 8.310594 mask Disposition: Discharged to home / rehab center Discharge Condition: Stable Instructions: Instruction sheet given to patient Activity: Ambulate with assistance, with weight- bearing as instructed in the hospital. Weight bearing li mitations were reviewed with the patient during the hospitalization. The Patient was supplied with a walker to help with impaired ambulation during surgical recovery. Diet: As per preoperatively Prescriptions 1. Pain Medications: As per discharge prescription, with progressive weaning as pain decreases 2. Anticoagulation: As per discharge prescription, or PreOp anticoa gulant, as discussed with patient Follow-up Appointment: Patient instructe d to arrange appointment for an office visit in 2 weeks Med Rec Med Rec Discharge meds: Stop taking the following medications: VITAMIN E (VITAMIN E) 400 UNITS CAP ORAL DAILY. ACETAMINOPHEN (TYLENOL) 500 MG TAB ORAL EVERY 6 HOURS NEEDED. as needed for PAIN [TAY FUSION VITAMINS] ORAL DAILY. [COCONUT OIL] ORAL DAILY. IBUPROFEN (ADVIL) 200 MG TAB ORAL EVERY 4 HOURS NEEDED. as needed for PAIN [EQUATE SLEEP AID] ORAL AT BEDTIME NEEDED. as needed for SLEEPING. Continue taking these medications: LOSARTAN/HCTZ (HYZAAR 100/25 MG) 1 TAB TAB 1 TABLET ORAL DAILY. amLODIPine (NORVASC) 5 MG TAB 5 MILLIGRAM ORAL DAILY. PANTOPRAZOLE DR (PROTONIX) 40 MG TAB.DR 40 MILLIGRAM ORAL DAILY. PRAVASTATIN (PRAVACHOL) 80 MG TAB 80 MILLIGRAM ORAL BEDTIME. GABAPENTIN (NEURONTIN) 600 MG TAB 600 MILLIGRAM ORAL BEDTIME. rOPINIRole (REQUIP) 1 MG TAB 1 MILLIGRAM ORAL BEDTIME. SIMETHICONE (GAS-X) 80 MG TAB.CHEW 80 MILLIGRAM ORAL TWICE DAILY. HYDROcodone/APAP (NORCO 10/325) 1 TAB TAB 1 TABLET ORAL EVERY 6 HOURS NEEDED. as neede d for PAIN Qty = 28 Instructions: TAKE 1 TABLET BY MOUTH EVERY 6 HOURS NEEDED FOR PAIN traMADol (ULTRAM) 50 MG TAB 50 MILLIGRAM ORAL EVERY 6 HOURS NEEDED. as n eeded for PAIN Qty = 100 Instructions: TAKE 1-2 TABLETS BY MOUTH EVERY 6 HOURS NEED ED FOR PAIN MELOXICAM (MOBIC) 15 MG TAB 15 MILLIGRAM ORAL DAILY. Qty = 30 ASPIRIN EC (ECOTRIN) 81 MG TAB.EC 81 MILLIGRAM ORAL TWICE DAILY. Qty = 60 METHOCARBAMOL (ROBAXIN) 500 MG TAB 500 MILLIGRAM ORAL FOUR TIMES DAILY NEEDED. as needed for MUSCLE SPASMS Qty = 60 Instructions: TAKE 1 TABLET BY MOUTH EVERY 6 HOURS NEEDED FOR MUSCLE SPASMS Electronically Signed by Sanaz Leonard NP on 07/08 09/22 at 0811 at 0909 [facility] #:[id number] END OF REPORT 2018-07-28 22:17:00-00:00 [id number] [facility] [address] [place] [address] PATIENT NAME: GI BURNETT ADMIT DATE: ACCOUNT NO: [id number] ROOM NO: Y311 AGE: 72 REPORT TYPE: OPERATIVE REPORT SEX: F ADMITTING PHYSICIAN:Wilfrid Davalos MD ATTENDING PHYSICIAN:Wilfrid Davalos MD OPERATION DATE: 07/28/2018 PREOPERATIVE DIAGNOSIS: Left hip end-stage degen erative disease. POSTOPERATIVE DIAGNOSIS: Left hip end-stage dege nerative disease. PROCEDURE: Left total hip arthroplasty. SURGEON: Wilfrid Davalos MD WATER REUSE PROGRAM MANAGER: Kristen Briscoe PA-C Hip arthroplasty requires an tourist information assistant for holdi ng of retractors for wide exposure so that the surgeon has both hands free to perform the surgery. In addition, with extremity jose ramon analilia, the tourist information assistant positions and stabilizes the leg in order for the surgeon to use his hands to ope rate. Retraction for exposure and visualization, and stabi lization of the extremity are vital to the procedure and not possible without an tourist information assistant. Dr. Davalos is not part of any residency or fellowship training progr [facility] and therefore required the help of the tourist information assistant listed above for this surgery. ANESTHESIA: COMPONENTS USED: DePuy Raphine sector 52-mm loreto tabular component with a +4 neutral 36-mm marathon liner , DePuy Actis size 3 standard offset stem, and a -2 cobalt chromium femoral head, 36 mm. 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 Preoperatively, slightly long left lowe r extremity. ESTIMATED BLOOD LOSS: 150 mL. SPECIMENS: None. PROCEDURE IN DETAIL: The pat ient was bought to the operating room and placed in the supine position. After induction of anesthesia, leg lengt h relationships were checked and noted and compared to findings and measurements on pre operative radiographs. The patient was turned on their side and secured on the operative table. Sterile prepping and draping followed. PATIENT NAME: GI BURNETT ACCOUNT #: [id number] An incision was made, centered over the greater trochanter. Dissection was sharply carried down through the subcuta neous tissues. The gluteus micky was incised and split proximally. The piriformis and external rotators were identi fied. These were removed from their insertions on the grea ter trochanter as a sleeve with the hip capsule and tagged. The tourist information assistant held t he leg in the appropriate rotation for exposure and release of these structures. The hip was dislocated with the aid of the sarthak tant carefully internally rotating the leg.. A femoral neck cut was made u sing the guidance of preoperative templating. The femoral head was re moved. Extensive degenerative disease was found on the femoral head as well as in the acetabulum. The femur was retracted anteriorly and was held anteriorly by the tourist information assistant. Exposure was held by the tourist information assistant with the use of multiple retractors around the acetabulum. Complete labrectomy was performe d. Reaming of the acetabulum was then performed until adequate bleeding subch ondral bone was identified in the egan areas. The acetabular component was opened and impacted into position, in the appropriate amount of anteversion and abd uction, using the guidance of bony and soft-tissue landmarks and preoperative templating. The trial liner was placed. The femur was then flexed and internally rotated and held in this position by the tourist information assistant for femoral preparation. Retractor s for exposure were also held around the proximal femur by the tourist information assistant. Late ral excess trochanteric bone was removed, as was any lateral soft tissue at t he piriformis insertion. The canal was found and reaming was performed un til the appropriate size was reached. The broaches were then used to prepare the femur, with the appropriate amount of version. Once the appropriate size broach was re ached, evidenced by excellent torsional stability, it was used as a trial, wit h head and neck placement and relocation of the hip, with the help of the tourist information assistant. Hip [id number]-imzbmr was checked in all planes, including flexion-interna l rotation, the position of sleep, and extension-external rotation. The hip was found to have excellent stability with the final chosen head-neck combin ation. An intraoperative radiograph demonstrated acce ptable leg length and offset measurements, given the necessity for stability, and was also used to gold leaf printer adequate position and sizing of all components. Trials were removed. The real liner was impacted into position. The real stem was opened and impacted into posit ion, with excellent final torsional stability and a scratch fit. The real head was impacted atop the stem. The calcar region and upper femur were ins pected for any cracks. Vigorous power irrigation wa s used to remove all debris from the joint prior to final reduction and the hip was relocated. Range of motion and stabilit y were once again checked and found to be excellent. PATIENT NAME: GI BURNETT ACCOUNT #: [id number] Adequate hemostasis was obtained. Local anesthet ic was injected into the capsule, musculature, and subcutaneous tissues. The arthrotomy and rotators were closed using No.1 Ethibond through drill holes in the bone, recreating the posterior hip struct ural anatomy. An augmentative suture was placed at the gluteus minimus-pirifor mis junction in order to maximize posterior stability. The gluteus maximu s was repaired, and after further irrigation, the subcutaneous tissues wer e closed in a multi-layered fashion. This was followed by skin closure. Sterile dressing was applied. The patient was awakened and transferred to the recovery room in stable condition. Dictated By: Wilfrid Davalos MD WT: OP:SANJAY/ Conf#: [id number]/DID#: [id number] Authenticated by Wilfrid Davalos MD On 07/29/19 08:51:23 AM at 0851 PATIENT NAME: GI BURNETT ACCOUNT #: [id number] 2018-07-28 14:01:00-00:00 [facility] ([facility] Op/Inv Procedure Note - Brief REPORT#:[id number] REPORT STATUS: Signed DATE:07/28/18 TIME: 1401 PATIENT: GI BURNETT UNIT #: [id number] ROOM/BED: [place] [address] : 46 AGE: 72 SEX: F ATTEND: Jose Davalos MD ADM AUTHOR: Wilfrid Davalos MD * ALL edits or amendments must be made on the el [employer]ronic/computer document * Op/Inv Proc Note - Brief TEXT Brief Op/Inv Procedure Note Note details: Pre-procedure diagnosis: Left Hip Degenerative J oint Disease Post-procedure diagnosis: Same Procedures performed: Left Total Hip Arthroplast y Primary Surgeon: CORNELIA Pilot Instructor: [Krishna Briscoe PA-C] Findings: Severe degenerativ e disease see dictated operative report for details Complications: None Estimated Blood Loss in ml s: [150] Specimens removed/altered: None at 1504 RPT #:[id number] END OF REPORT
[2022-11-27 11:59] LABS: Hematocrit 35.9 % (36.0-45.0)
--- NOTE | 2022-11-27 12:05 | RAD REPORT ---
EXAM DESCRIPTION: RAD - Knee Right 2 View - 11/27/2022 11:40 am CLINICAL HISTORY: Post Op COMPARISON: Knee Right 3 View dated 02/23/2021 TECHNIQUE: Right knee, 2 views. FINDINGS: A right total knee arthroplasty has been performed. Hardware is in expected location. Skin josue are noted. IMPRESSION: Postoperative right knee with no unexpected finding.
[2022-11-27 13:54] VITALS: BMI 47.9
[2022-11-27] MEDS: CEFAZOLIN SODIUM 2 GM in NA CHLORIDE 0.9% 100 ML IVPB SCH (16:03)
[2022-11-27] MEDS: HYDROCODONE/APAP 7.5/325 MG TAB PO PRN (18:15)
[2022-11-27] MEDS ORDERED: ROPINIROLE HCL 1 MG TAB PO SCH (21:00)
[2022-11-27] MEDS ORDERED: MELATONIN 5 MG TABLET PO SCH (21:00)
[2022-11-28] MEDS: CEFAZOLIN SODIUM 2 GM in NA CHLORIDE 0.9% 100 ML IVPB SCH ×2 (01:34→10:17)
[2022-11-28 04:09] LABS: Hematocrit 31.6 % (36.0-45.0)
[2022-11-28] MEDS ORDERED: ENOXAPARIN 30 MG/0.3 ML SQ SCH (06:00)
--- NOTE | 2022-11-28 08:12 | P.OP ---
Preoperative diagnosis: right knee osteoarthritis Postoperative diagnosis: same Primary procedure: right total knee arthroplasty Anesthesia: general Estimated blood loss: 40 cc Specimen: right knee bone remnants Findings: see dictation Operative Technique: Indication For Procedure: Patient is a 77 year-old female presenting to my clinic with signs, symptoms and x-ray findings consistent with severe right knee osteoarthritis. I discussed with the patient at length risks and benefits associated with operative and nonoperative treatment. She had failed conservative treatment measures and had significant difficulties with ADLs secondary to her pain. We discussed operative treatment and elected to proceed with right total knee arthroplasty. She expressed understanding and elected to proceed with operative treatment. Description Of Procedure: After informed consent was obtained, the patient was identified in the preoperative holding area. The right lower extremity was marked. The patient was then taken to the PACU where she underwent a right lower extremity adductor canal block performed by Anesthesia. She was then taken to the operating room, transferred to the operating table in supine fashion, and placed under general anesthesia. The right lower extremity was then prepped and draped in usual sterile fashion. A time-out was initiated. The correct patient and procedure were confirmed and identified. The patient did receive her preoperative prophylactic antibiotics. The right lower extremity was then exsanguinated and tourniquet was inflated to 300 mmHg. Approximately 15 cm longitudinal incision was made centered over the anterior aspect of the right knee. Dissection was then taken to the extensor mechanism and a medial parapatellar arthrotomy was performed. The patella was everted and dislocated laterally and the knee was flexed in the fat pad. The patient had a cyst that was decompressed over the proximal medial tibia with elevation of the medial capsule off the proximal tibia. Medial and lateral meniscus and ACL were all excised exposing the distal femur. Excess hypertrophic synovium was also excised within the suprapatellar pouch. The patient had an MRI of her right knee preoperatively for surgical planning and creation of cutting blocks. The cutting block was then placed over the distal femur and pins were then placed. The distal femoral cutting block was then placed over the pins. An henrique wing was then used to ensure proper depth cut and the distal femur was then cut. The chamfer cutting guide was then placed over the distal end of the femur. Anterior, posterior cuts as well as anterior and posterior chamfer cuts were then made again confirming proper depth of the cut using an Henrique wing. Excess bone remnants were then sent to pathology for further evaluation. Next, attention was taken to the proximal tibia. A tibial jig and tibial cutting block was then placed on proximal aspect of the right tibia and locked into position. Pins were then placed and alignment guide was then used to confirm proper alignment of the cut and then coronal and sagittal planes. Once this was confirmed, the cutting jig was placed over the pins and the proximal tibia was cut. Sizing trays were then selected and size 10 mm spacer was used and there was good overall balance in flexion and extension. Next, the trial implants were then placed using the size 7 standard CR femur and a size D tibia and an 10 mm CR poly. There was overall good range of motion and good stability. The trial implants were then removed. The wound was then irrigated thoroughly with normal saline and the knee was then injected with 30 cc of 0.5% Marcaine both in the posterior capsule and medial and lateral gutters as well as quadriceps tendon and periosteum. The tibia was then punched. The femur was drilled. The cement was then prepared on the back table. Cement was then placed first on the tibial surface followed by size D tibia with a stem given her increased weight. Excess cement was removed with [place] elevators. Size 7 standard CR femur was then placed on the distal femur after cement was placed on the distal femur. Excess cement was then removed and a size 10 mm CR trial poly was then placed. The knee was held in extension as the cement hardened. Undersurface of the patella was prepared debriding osteophytes using rongeurs as well as osteophytes.. Cement was placed on the undersurface of the patella after it was cut and a size 29 patella was placed. Once the cement was hardened, the knee was ranged, there was good overall stability both in flexion, extension and as well as stability with varus and valgus stresses. Trial poly was then removed and a size 10 mm CR poly was then placed and locked into position. The knee was then ranged again. There was good overall range of motion both for flexion and extension with good stability. The wound was then irrigated again thoroughly with normal saline using pulse lavage. Tourniquet was let down. Hemostasis was achieved using Bovie electrocautery. Extensor mechanism was then approximated using a #1 Vicryl both in interrupted and running fashion. The fascia was then approximated using 0 Vicryl. Subcutaneous tissue was approximated with a 2-0 Vicryl. Skin was approximated using josue. Sterile dressings were applied. The patient was awakened and transferred back in stable condition Complications: None Implants: Biomet Annette Persona, 7 CR femur, D tibia w/ stem, 10 CR poly, 29 patella Fluids & blood products: per anesthesia record; 90 mins @ 300 mmHg Transferred to: Recovery Room Condition: Good
[2022-11-28 08:57] VITALS: BP 154/64; TEMP 97.4
[2022-11-28] MEDS ORDERED: CETIRIZINE HCL 5 MG TABLET PO SCH (09:00)
[2022-11-28] MEDS ORDERED: atenoloL 50 MG TAB PO SCH (09:00)
[2022-11-28] MEDS ORDERED: PANTOPRAZOLE 40MG TABLET PO SCH (09:00)
[2022-11-28] MEDS ORDERED: LOSARTAN/HCTZ 50-12.5 PO SCH (09:00)
[2022-11-28] MEDS ORDERED: CELECOXIB 100 MG CAPSULE PO SCH (09:00)
[2022-11-28] MEDS ORDERED: PREGABALIN 150 MG CAP PO SCH (09:00)
[2022-11-28 09:20] VITALS: O2SAT 93
[2022-11-28] MEDS: HYDROCODONE/APAP 7.5/325 MG TAB PO PRN (10:02)
[2022-11-28] MEDS ORDERED: NA CHLORIDE 0.9% 100 ML ONE (10:05)
--- NOTE | 2022-11-28 12:35 | P.DS ---
Admission Date: 11/27/22 Discharge Date: 11/28/22 Disposition: TRANSFER TO INPATIENT REHAB Discharge Condition: GOOD Reason for Admission: s/p R TKA Procedures: R TKA 11/27/2022 Brief History of Present Illness: Gi is a 77-year-old female status post right total knee arthroplasty on November 27, 2022. She was admitted to the floor postoperatively in stable condition. Hospital Course: Gi was admitted to floor postoperatively in stable condition. Physical therapy was consulted to aid with mobilization. Patient was weightbearing as tolerated and mobilized with physical therapy. She was discharged to inpatient rehabilitation to aid with her mobility as she had impaired mobility and pain postoperatively. She will follow-up in 2 weeks for wound check and staple removal. Vital Signs/Physical Exam: Temp Pulse Resp BP Pulse Ox 97.4 F 60 16 154/64 H 97 11/28/22 08:00 11/28/22 08:00 11/28/22 08:00 11/28/22 08:00 11/28/22 08:00 Laboratory Data at Discharge: WBC 4.90 thou/uL (4.3-10.9) 11/21/22 10:10 Hgb 10.6 g/dL (12.0-15.0) L 11/28/22 02:27 Hct 31.6 % (36.0-45.0) L 11/28/22 02:27 Plt Count 187 thou/uL (152-406) 11/21/22 10:10 PT 10.4 SECONDS (9.5-12.5) 11/21/22 10:10 INR 0.95 11/21/22 10:10 APTT 30.4 SECONDS (24.3-36.9) 11/21/22 10:10 Sodium 138 mEq/L (136-145) 11/21/22 10:10 Potassium 4.2 mEq/L (3.5-5.1) 11/21/22 10:10 BUN 25 mg/dL (7-18) H 11/21/22 10:10 Creatinine 1.08 mg/dL (0.55-1.02) H 11/21/22 10:10 Glucose 110 mg/dL (74-106) H 11/21/22 10:10 Total Bilirubin 0.6 mg/dL (0.2-1.0) 11/21/22 10:10 AST 25 U/L (15-37) 11/21/22 10:10 ALT 28 U/L (13-56) 11/21/22 10:10 Alkaline Phosphatase 65 U/L (45-117) 11/21/22 10:10 Home Medications: Aspirin [Low Dose Aspirin EC] 81 mg PO DAILY 11/21/22 Atenolol [Tenormin] 100 mg PO DAILY 11/21/22 Cetirizine HCl [Allergy Relief] 10 mg PO DAILY 11/21/22 Cholecalciferol (Vitamin D3) [Vitamin D3] 50 mcg PO DAILY 11/21/22 Cyanocobalamin [Vitamin B-12*] 1,000 mcg PO DAILY 11/21/22 Hyoscyamine Sulfate [Levsin TAB*] 0.125 mg PO DAILYPRN PRN 11/21/22 L. Acidophilus/Bifid. Animalis [Probiotic 5 Billion Cell Cap] 1 each PO DAILY 11/21/22 Losartan/Hydrochlorothiazide [Losartan-Hctz 100-25 mg Tab] 1 each PO DAILY 11/21/22 Melatonin 20 mg PO BEDTIME 11/21/22 Pantoprazole [Protonix Tab*] 40 mg PO DAILY 11/21/22 Ropinirole HCl 2 mg PO BEDTIME 11/21/22 Simethicone [Gas-X] 125 mg PO PRN PRN 11/21/22 Vitamin E (Dl,Tocopheryl Acet) [Vitamin E] 180 mg PO DAILY 11/21/22 Pregabalin [Lyrica*] 1 tab PO DAILY 11/27/22 Pregabalin [Lyrica] 1 tab PO BEDTIME 11/27/22 Hydrocodone 7.5/APAP 325 [[place]on 7.5/325 mg*] 1 tab PO Q4H PRN tab 11/28/22 Pregabalin [Lyrica] 300 mg PO DAILY cap 11/28/22 Physician Discharge Instructions: Keep dressing on right knee clean dry and intact. Begin Xarelto tomorrow, November 29, 2022 in the morning with breakfast and take once daily for 11 days. Start aspirin 81 mg once daily after completion of the Xarelto. Use bilateral thigh- high DAVIS hose for 2 weeks postoperatively to aid with swelling. Follow-up with Dr. Alexandre in 2 weeks for staple removal. Diet: Regular Activity: Weight bearing as tolerated Followup: Melanie Smart NP [Primary Care Provider] - Haroldo Alexandre MD [ACTIVE - CAN ADMIT] - 1-2 Weeks
== END 2022-11-28 18:00 ==
LOC: OR 05:59 → 2ND 11:47
PROVIDERS: ADMIT Nurse Practitioner Family; ATTEND Orthopaedic Surgery Sports Medicine
PROC: 0SRC069 Replacement of Right Knee Joint with Oxidized Zirconium on Polyethylene Synthetic Substitute, Cemented, Open Approach (ICD-10-PCS; principal; 2022-11-27 08:00)
DX: M17.11 Unilateral primary osteoarthritis, right knee (principal); Z79.82 Long term (current) use of aspirin; Z79.899 Other long term (current) drug therapy
CPT/HCPCS: 93005; 85025; 36415 ×3; 85610; 88304; 88311; 85730; 85018 ×2; 85014 ×2; 80053; 71046; 73560; 97110 ×2; 97116 ×2; 97139; 97161; 97530 ×2; 94010 ×3; 27447; C1776; A4216; J2704; J0171; J2001 ×2; J1650; J2250; J3010; J1100 ×2; J1170; J2405 ×2; G0378 ×4; J7120 ×2

== ENCOUNTER 2023-11-12 10:23 | Day surgery (SDC) | payer OTHER, BC ==
[2023-11-10 15:05] LABS: Absolute Eosinophils 0.2 K/uL (0-0.5); Absolute Lymphocytes (CBC) 1.2 K/uL (0.7-4.9); Absolute Monocytes 0.6 K/uL (0.1-1.3); Absolute Neutrophil 3.4 K/uL (1.8-8.0); Basophils % 0.8 % (0-1.3); Eosinophils % 3.9 % (0-4.4); Hematocrit 37.9 % (36.0-45.0); Hemoglobin 12.4 g/dL (12.0-15.0); Lymphocytes % 21.8 % (15.3-44.8); MCH 29.8 pg (27.0-35.0); MCHC 32.8 g/dL (32.0-36.0); MCV 90.9 fL (80-100); MPV 11.4 fL (7.6-11.3); Monocytes % 10.7 % (3.3-12.3); Neutrophils % 62.8 % (41.7-73.7); Nucleated Red Blood Cells % 0.1 % (0-0); Platelets 187 thou/uL (152-406); RBC Red Blood Cell Count 4.17 M/uL (3.86-4.86); Red Cell Distribution Width 14.6 % (12.1-15.2)
[2023-11-10 15:13] LABS: Anion Gap 3.2 mEq/L (5.0-15.0); Potassium 4.2 mEq/L (3.5-5.1)
--- NOTE | 2023-11-11 14:02 | EKG ---
Test Date: 2023-11-10 Test Time: 13:49:09 Sap Gatherer: RIK MEASUREMENT RESULTS: Intervals: Rate: 46 UT: 212 QRSD: 98 QT: 482 QTc: 421 Donie: P: 63 UT: 212 QRS: -52 T: 44 INTERPRETIVE STATEMENTS: Marked sinus bradycardia with sinus arrhythmia with 1st degree AV block Left axis deviation Abnormal ECG Compared to ECG 11/21/2022 09:13:20 First degree AV block now present Left-axis deviation now present Atrial premature complex(es) no longer present Left anterior fascicular block no longer present Myocardial infarct finding no longer present Electronically Signed On 11-11-23 13:58:45 CDT by Leroy Stroud
[2023-11-12] MEDS: Ringers Lactate 1,000 ML IV ONE (11:26)
[2023-11-12] MEDS ORDERED: propofoL 200 MG/20 ML VIAL IV ONE (11:31)
[2023-11-12] MEDS ORDERED: LIDOCAINE 1% MPF 30 ML VIAL ONE (11:31)
[2023-11-12] MEDS ORDERED: NA CHLORIDE 0.9% 50 ML ONE (11:52)
[2023-11-12 14:10] VITALS: BP 115/46; TEMP 97.5; O2SAT 96
== END 2023-11-12 13:26 | disposition home or self-care (01) ==
LOC: OR 10:23
PROVIDERS: ATTEND Surgery
PROC: 0DBM8ZX Excision of Descending Colon, Via Natural or Artificial Opening Endoscopic, Diagnostic (ICD-10-PCS; principal; 2023-11-12 12:00)
DX: Z12.11 Encounter for screening for malignant neoplasm of colon (principal); K64.8 Other hemorrhoids; K64.4 Residual hemorrhoidal skin tags; K63.5 Polyp of colon
CPT/HCPCS: 93005; 85025; 80048; 36415; 88305; 45380; J2704; J2001; J7120